=== PATIENT | male | born 1985 | race African-American/Black ===

== ENCOUNTER → 2017-01-07 | Outpatient (CLI) | payer OTHER ==
[~2017-01-07] VITALS: Ht 193 cm; Wt 108.9 kg
[~2017-01-07] MED LIST: ACETAMINOPHEN325 M1 PO; AFLURIA 2045 MCG/0.4; AMOXICILLIN 50500 MG PO; ASCORBIC ACID500 M1 PO; ATIVAN1 MG PO; BACLOFEN; BACLOFEN 10MG T10 M1 PO; BACLOFEN 10MG T10 MG PO; BACLOFEN IT; BACLOFEN20 MG; BACLOFEN20 MG PO; BACTRIM DS TAB1 EACH PO; BISACODYL SUPP10 MG RECTAL; C-500500 MG PO; CENTRUM SILVER1 EAC2 PO; CIPRO; CIPROFLOXACIN500 M1 PO; CLONAZEPAM 1 MG1 M1; CLONAZEPAM 1 MG1 M1 PO; DOXYCYCLINE 10100 M1 PO; GABAPENTIN; GABLOFEN50 MCG/1 M; HYDROCODON-ACE1 EAC4 PO; HYDROCODON-ACE1 EAC5 PO; HYDROCODONE-AP1 EAC6 PO; KLONOPIN1 MG PO; LACTULOSE10 GM/152; LEVAQUIN 500 M500 M2 PO; LEVAQUIN 500 M500 MG PO; LIORESAL 10 MG10 MG PO; LORTAB 5 MG/5001 TA1 PO; METHADONE HCL5 MG PO; MORPHINE 2 IT; MS CONTIN 30 MG30 MG PO; MS CONTIN15 MG PO; NOHOMEMEDICATIONS; NORCO 10-325 T1 EACH PO; NORCO 5-325 TA1 EACH PO; OXYBUTYNIN 5 MG5 M1 PO; PERCOCET 5-3251 EACH PO; PHENERGAN 25 MG25 M1 PO; PNEUMOVAX25 MCG/0.5; PROAIR HFA8.5 GM IH; PROZAC 10 MG CA10 M1 PO; PROZAC 10 MG CA10 MG PO; PROZAC PO; RIFAMPIN 300 M300 M1 PO; SANTYL OINTMENT30 G1 TOP; TIZANIDINE HCL4 M1 PO; TIZANIDINE HCL4 MG PO; TRAMADOL 50 MG50 MG PO; TUMS PO; ULTRAM 50MG TAB50 MG PO; UNICOMPLEX M TA1 TA1 PO; VESICARE10 M1 PO; VITAMINC500 PO; VOLTAREN GEL 1100 G1 TOP; VOLTAREN GEL 1100 GM TOP; ZANAFLEX4 M1 PO; ZANAFLEX4 MG PO; ZANAFLEX6 MG PO; ZINC SULFATE 2220 M1 PO; ZOFRAN ODT4 MG PO; [UNRECOGNIZED DRUG - OTHER] URETHRAL
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
[2017-01-07 10:35] VITALS: BP 121/71
== END ==
LOC: PAIN 07:34
DX: G04.1 Tropical spastic paraplegia (principal); G62.9 Polyneuropathy, unspecified; G89.29 Other chronic pain

== ENCOUNTER → 2017-02-19 | Outpatient (CLI) | payer OTHER ==
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
[2017-02-19 13:50] VITALS: BP 137/96
== END | disposition home or self-care (01) ==
LOC: PAIN 07:17
DX: G82.20 Paraplegia, unspecified (principal); G62.9 Polyneuropathy, unspecified

== ENCOUNTER 2017-03-07 16:10 | Emergency (ER) | payer OTHER ==
[~2017-03-07] VITALS: Ht 193 cm; Wt 113.4 kg
== END 2017-03-07 19:17 | disposition home or self-care (01) ==
LOC: ER 16:10
DX: Z46.6 Encounter for fitting and adjustment of urinary device (principal); G82.20 Paraplegia, unspecified; Z86.14 Personal history of Methicillin resistant Staphylococcus aureus infection; F41.9 Anxiety disorder, unspecified

== ENCOUNTER → 2017-06-01 | Outpatient (CLI) | payer OTHER ==
[~2017-06-01] VITALS: Ht 193 cm; Wt 108.9 kg
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
[2017-06-01 16:11] VITALS: BP 124/89
== END | disposition home or self-care (01) ==
LOC: PAIN 07:04
DX: G82.20 Paraplegia, unspecified (principal); Z79.899 Other long term (current) drug therapy

== ENCOUNTER 2017-10-15 15:29 | Emergency (ER) | payer OTHER ==
[~2017-10-15] VITALS: Ht 193 cm; Wt 99.8 kg
[2017-10-15 18:45] VITALS: BP 126/78
[2017-10-15] MEDS ORDERED: COUMADIN 5 MG TA5 M1 PO (19:37)
[2017-10-15] MEDS ORDERED: ENOXAPARIN100 MG/11 SUBQ (19:37)
[2017-10-26] MEDS ORDERED: ZANAFLEX4 MG PO (14:03)
[2017-10-26] MEDS ORDERED: HYDROCODON-ACE1 EAC5 PO ×2 (14:03)
[2017-10-26] MEDS ORDERED: BACLOFEN20 MG PO (14:03)
[2017-10-26] MEDS ORDERED: KLONOPIN1 MG PO (14:03)
[2017-10-26] MEDS ORDERED: COUMADIN 5 MG TA5 M1 PO (14:11)
[2018-04-29] MEDS ORDERED: OXYCODONE-ACET1 EAC2 PO ×2 (10:51→11:29)
[2018-04-29] MEDS ORDERED: ZANAFLEX4 MG PO (11:29)
[2018-04-29] MEDS ORDERED: LIORESAL 10 MG10 MG PO (11:29)
[2018-04-29] MEDS ORDERED: NEURONTIN 300300 M1 PO (11:29)
[2018-04-29] MEDS ORDERED: KLONOPIN1 MG PO (11:29)
[2018-08-06] MEDS ORDERED: VALIUM5 MG PO (10:13)
[2018-08-06] MEDS ORDERED: OXYCODONE-ACET1 EAC2 PO (10:40)
[2018-08-06] MEDS ORDERED: PERCOCET 10-321 EACH PO (10:44)
== END 2017-10-15 18:45 | disposition home or self-care (01) ==
LOC: ER 15:29
DX: I82.491 Acute embolism and thrombosis of other specified deep vein of right lower extremity (principal); L89.219 Pressure ulcer of right hip, unspecified stage; F41.9 Anxiety disorder, unspecified; Z86.14 Personal history of Methicillin resistant Staphylococcus aureus infection

== ENCOUNTER → 2017-10-26 | Outpatient (CLI) | payer OTHER ==
[~2017-10-26] VITALS: Ht 193 cm; Wt 97.5 kg
[~2017-10-26] MED LIST changes: +COUMADIN 5 MG TA5 M1 PO; +ENOXAPARIN100 MG/11 SUBQ; +NEURONTIN 300300 M1 PO; +OXYCODONE-ACET1 EAC2 PO; +PERCOCET 10-321 EACH PO; +VALIUM5 MG PO
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
[2017-10-26 13:24] VITALS: BP 115/68
== END ==
LOC: PAIN
DX: S21.402A Unspecified open wound of left back wall of thorax with penetration into thoracic cavity, initial encounter (principal); I82.401 Acute embolism and thrombosis of unspecified deep veins of right lower extremity; F11.90 Opioid use, unspecified, uncomplicated; R25.2 Cramp and spasm; X58.XXXA Exposure to other specified factors, initial encounter; Y93.89 Activity, other specified; Y92.89 Other specified places as the place of occurrence of the external cause; Y99.8 Other external cause status

== ENCOUNTER 2018-01-26 19:27 | Inpatient (IN) | payer OTHER ==
[~2018-01-26] VITALS: Ht 193 cm; Wt 92.2 kg
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
[~2018-01-26 19:27] MED LIST changes: -NEURONTIN 300300 M1 PO; -OXYCODONE-ACET1 EAC2 PO; -PERCOCET 10-321 EACH PO; -VALIUM5 MG PO
[2018-01-26 19:30] VITALS: BP 137/87
[2018-01-26 20:43] LABS: BASOPHILS 1.1 % (0.0-2.0); EOSINOPHILS 0.6 % (0.0-3.0); HEMOGLOBIN 10.1 gm/dL (14.0-18.0); LYMPHOCYTES 27.2 % (24.0-44.0); MCHC 31.6 g/dL (28.0-37.0); MCV 76.2 fL (80.0-100.0); MONOCYTES 6.2 % (1.0-8.0); PLATELET COUNT 528 thou/uL (150-400); POLYS 64.9 % (36.0-66.0); RDW 17.3 % (10.5-14.5); WBC 13.8 thou/uL (4.0-11.0)
[2018-01-26] MEDS ORDERED: LIORESAL 10 MG10 MG PO (20:48)
[2018-01-26 20:50] LABS: CALCIUM 9.7 mg/dL (8.5-10.1); POTASSIUM 3.6 mmol/L (3.5-5.1)
[2018-01-26 21:41] LABS: URINE BILIRUBIN NEGATIVE (Negative); URINE BLOOD TRACE (Negative); URINE CLARITY CLEAR; URINE COLOR YELLOW; URINE GLUCOSE-RANDOM* NEGATIVE (Negative); URINE KETONES 1+ (Negative); URINE PROTEIN (DIPSTICK) TRACE (Negative); URINE SPECIFIC GRAVITY >= 1.030 (1.005-1.035); URINE UROBILINOGEN 0.2 E.U./dl (0.2-1.0)
[2018-01-26 21:42] LABS: URINE LEUKOCYTES-REFLEX 1+ (Negative); URINE NITRITE-REFLEX POSITIVE (Negative)
[2018-01-26 21:48] LABS: SQUAMOUS >10 Many /LPF (0-3)
[2018-01-26 21:49] LABS: BACTERIA-REFLEX >30 Many /HPF (None Seen); COARSE GRANULAR CASTS 0-3 Few /LPF (None Seen); CRYSTALS None Seen /LPF (None Seen); FINE GRANULAR CASTS 0-3 Few /LPF (None Seen); MUCUS >6 Heavy strn/LPF (None Seen); URINE RBC 3-10 Few /HPF (0-2); URINE WBC-REFLEX >25 Many /HPF (0-5)
[2018-01-26 22:04] VITALS: BP 137/87
[2018-01-26 22:20] VITALS: BP 135/78
[2018-01-26 22:37] VITALS: BP 128/80
[2018-01-27 04:30] VITALS: BP 133/72
[2018-01-27 07:43] VITALS: BP 112/55
[2018-01-27 20:00] VITALS: BP 120/72
[2018-01-28 04:30] VITALS: BP 146/90
[2018-01-28 06:08] LABS: CALCIUM 9.4 mg/dL (8.5-10.1); CREATININE 0.9 mg/dL (0.7-1.3); POTASSIUM 4.1 mmol/L (3.5-5.1)
[2018-01-28 06:43] LABS: FOLIC ACID 10.2 ng/mL (8.6-58.9); TSH 1.205 uIU/mL (0.358-3.740)
[2018-01-28 07:43] LABS: BASOPHILS 0.8 % (0.0-2.0); EOSINOPHILS 1.6 % (0.0-3.0); HEMATOCRIT 30.5 % (42.0-52.0); HEMOGLOBIN 9.7 gm/dL (14.0-18.0); LYMPHOCYTES 22.3 % (24.0-44.0); MCH 24.5 pg (26.0-34.0); MCV 76.5 fL (80.0-100.0); PLATELET COUNT 458 thou/uL (150-400); POLYS 66.3 % (36.0-66.0); RBC 3.98 mil/uL (4.50-6.00); RDW 17.7 % (10.5-14.5); WBC 10.5 thou/uL (4.0-11.0)
[2018-01-28 08:36] VITALS: BP 111/65
[2018-01-28] MEDS ORDERED: KLONOPIN1 MG PO (16:58)
[2018-01-28] MEDS ORDERED: HYDROCODON-ACE1 EAC5 PO ×2 (16:58)
[2018-01-28 17:37] VITALS: BP 119/74
[2018-01-28 19:56] VITALS: BP 123/77
[2018-01-29 03:49] VITALS: BP 117/72
[2018-01-29 05:54] LABS: ABSOLUTE NEUTROPHILS 6.1 thou/uL (1.4-8.2); BASOPHILS 0.7 % (0.0-2.0); HEMATOCRIT 27.6 % (42.0-52.0); HEMOGLOBIN 8.9 gm/dL (14.0-18.0); LYMPHOCYTES 29.5 % (24.0-44.0); MCH 24.7 pg (26.0-34.0); MCHC 32.2 g/dL (28.0-37.0); MCV 76.7 fL (80.0-100.0); MONOCYTES 8.2 % (1.0-8.0); PLATELET COUNT 434 thou/uL (150-400); POLYS 59.6 % (36.0-66.0); RBC 3.59 mil/uL (4.50-6.00); RDW 17.5 % (10.5-14.5); WBC 10.3 thou/uL (4.0-11.0)
[2018-01-29 06:07] LABS: CALCIUM 9.3 mg/dL (8.5-10.1); CREATININE 1.1 mg/dL (0.7-1.3)
[2018-01-29 07:05] VITALS: BP 120/60
[2018-01-29 19:23] VITALS: BP 118/80
[2018-01-30 03:29] VITALS: BP 107/72
[2018-01-30 08:03] VITALS: BP 115/64
[2018-01-30 08:56] LABS: ABSOLUTE NEUTROPHILS 5.1 thou/uL (1.4-8.2); BASOPHILS 0.8 % (0.0-2.0); EOSINOPHILS 2.5 % (0.0-3.0); HEMATOCRIT 30.4 % (42.0-52.0); HEMOGLOBIN 9.6 gm/dL (14.0-18.0); MCH 24.3 pg (26.0-34.0); MCHC 31.6 g/dL (28.0-37.0); MCV 76.8 fL (80.0-100.0); MONOCYTES 7.4 % (1.0-8.0); PLATELET COUNT 440 thou/uL (150-400); POLYS 53.3 % (36.0-66.0); RBC 3.96 mil/uL (4.50-6.00); RDW 17.4 % (10.5-14.5); WBC 9.5 thou/uL (4.0-11.0)
[2018-01-30 09:08] LABS: CALCIUM 9.7 mg/dL (8.5-10.1); CREATININE 0.9 mg/dL (0.7-1.3); POTASSIUM 3.8 mmol/L (3.5-5.1)
[2018-01-30 20:00] VITALS: BP 120/62
[2018-01-31 03:44] VITALS: BP 102/57
[2018-01-31 07:30] VITALS: BP 99/67
[2018-01-31 15:00] VITALS: BP 102/54
[2018-01-31 15:31] LABS: ABSOLUTE NEUTROPHILS 6.6 thou/uL (1.4-8.2); EOSINOPHILS 1.5 % (0.0-3.0); HEMATOCRIT 33.7 % (42.0-52.0); LYMPHOCYTES 25.8 % (24.0-44.0); MCH 24.7 pg (26.0-34.0); MCHC 32.7 g/dL (28.0-37.0); MCV 75.5 fL (80.0-100.0); MONOCYTES 5.9 % (1.0-8.0); PLATELET COUNT 467 thou/uL (150-400); POLYS 65.8 % (36.0-66.0); RBC 4.46 mil/uL (4.50-6.00); RDW 17.7 % (10.5-14.5); WBC 10.1 thou/uL (4.0-11.0)
[2018-01-31 15:44] LABS: ALBUMIN 2.9 g/dL (3.4-5.0); CALCIUM 9.7 mg/dL (8.5-10.1); CREATININE 0.9 mg/dL (0.7-1.3); POTASSIUM 4.1 mmol/L (3.5-5.1); TOTAL BILIRUBIN 0.2 mg/dL (<0.1-1.0)
[2018-01-31 16:29] LABS: % SATURATION 20 % (20-39); IRON 46 ug/dL (65-175); TIBC 232 ug/dL (250-450)
[2018-01-31 19:44] VITALS: BP 121/77
[2018-02-01 05:45] VITALS: BP 94/53
[2018-02-01 06:01] LABS: ABSOLUTE NEUTROPHILS 8.4 thou/uL (1.4-8.2); BASOPHILS 1.2 % (0.0-2.0); EOSINOPHILS 1.5 % (0.0-3.0); HEMATOCRIT 34.2 % (42.0-52.0); LYMPHOCYTES 25.9 % (24.0-44.0); MCH 24.3 pg (26.0-34.0); MCHC 32.2 g/dL (28.0-37.0); MCV 75.5 fL (80.0-100.0); MONOCYTES 5.6 % (1.0-8.0); PLATELET COUNT 513 thou/uL (150-400); POLYS 65.8 % (36.0-66.0); RBC 4.53 mil/uL (4.50-6.00); RDW 17.2 % (10.5-14.5); WBC 12.8 thou/uL (4.0-11.0)
[2018-02-01 06:12] LABS: CREATININE 0.9 mg/dL (0.7-1.3); POTASSIUM 4.7 mmol/L (3.5-5.1)
[2018-02-01 07:20] VITALS: BP 106/67
[2018-02-01] MEDS ORDERED: LIORESAL 10 MG10 MG PO (09:48)
[2018-02-01] MEDS ORDERED: KLONOPIN1 MG PO (09:48)
[2018-02-01] MEDS ORDERED: HYDROCODON-ACE1 EAC5 PO ×2 (09:48)
[2018-02-01] MEDS ORDERED: ZANAFLEX4 MG PO (09:48)
[2018-02-01 15:15] VITALS: BP 123/70
[2018-02-01 20:15] VITALS: BP 102/62
[2018-02-02 05:46] VITALS: BP 99/58
[2018-02-02 07:42] VITALS: BP 116/69
[2018-02-02 14:01] VITALS: BP 95/57
== END 2018-02-02 15:27 | DRG 592 ==
LOC: ER 19:27 → 4E 21:51 → EROBS 21:51 → 4E 22:23
PROVIDERS: Hospitalist; Internal Medicine Infectious Disease; Physician Assistant
DX: L89.313 Pressure ulcer of right buttock, stage 3 (principal); E43 Unspecified severe protein-calorie malnutrition; G82.22 Paraplegia, incomplete; N39.0 Urinary tract infection, site not specified; L89.323 Pressure ulcer of left buttock, stage 3; L89.213 Pressure ulcer of right hip, stage 3; L89.224 Pressure ulcer of left hip, stage 4; E88.09 Other disorders of plasma-protein metabolism, not elsewhere classified; D50.9 Iron deficiency anemia, unspecified; F41.9 Anxiety disorder, unspecified; B96.20 Unspecified Escherichia coli [E. coli] as the cause of diseases classified elsewhere; Z86.718 Personal history of other venous thrombosis and embolism; Z86.14 Personal history of Methicillin resistant Staphylococcus aureus infection; Z68.24 Body mass index [BMI] 24.0-24.9, adult
CPT/HCPCS: 10084

== ENCOUNTER → 2018-04-29 | Outpatient (CLI) | payer OTHER ==
[~2018-04-29] VITALS: Ht 193 cm; Wt 93.9 kg
[~2018-04-29] MED LIST changes: +NEURONTIN 300300 M1 PO; +OXYCODONE-ACET1 EAC2 PO
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
--- NOTE | ~2018-04-29 | HPC ---
[facility] [address] [place] [address] PAIN MANAGEMENT CONSULTATION Name: JUANCARLOS KEY Room #: REG [facility].#: [id number] Admission: 04/29/18 Attend Phys: Yony Goldman MD Discharge: Date of : 86 Report #: [id number] THIS REPORT FOR: //name// CC: [facility] physician/PCP Yony Goldman DATE OF SERVICE: 04/29/2018 Followup visit for chronic pain. The patient was last seen on 10/26/2017. He has had rough 6 months. He says he has had multiple open wounds. He was treated in the hospital for a period of time and now is back home with home health coming to make dressing changes for him. It sounds like these were stage [address] pressure sores extending all the way down to the bone. His pain shot up considerably and he was placed on rather high doses of oxycodone. At the peak of his usage he was taking up to 20 mg of oxycodone every 4 hours. This equates to 120 mg of oxycodone or 180 morphine milligram equivalents. Unfortunately, he ran out of medications about 3 weeks ago at that dose. He has been unable to get comfortable with his previous doses of medication since that time. He brought in his bottle of hydrocodone today and wanted me to prescribing these high doses of opioids. I told him that I would not do so, I felt that this was inappropriate, he would develop hyperalgesia and that he would rapidly develop tolerance, and I believe he already has. PHYSICAL EXAMINATION: He is 6 feet 4 inches, 33-year-old, BMI is 25.2. His blood pressure is 105/66, heart rate 73, respirations 14. Pain intensity is 8. He is not on any blood thinners. He has signed an opioid risk tool and is a low risk for addiction, although he does have significant chronic pain and has longstanding use of pain medication to help with that. He is on an opioid agreement. He is on polypharmacy including clonazepam, tizanidine, baclofen, hydrocodone and gabapentin. On physical exam, I was unable to get a good look at his wounds due to dressings, but he has dressing changes occurring in the next hour. I have asked them to take pictures so that I can keep track of them when I see him. IMPRESSION: 1. Chronic intractable pain and spasticity due to spinal cord injury at T6. 2. Management of high risk medications and polypharmacy. PLAN: I renewed the following for him today: 1. Clonazepam 1 tablet q.6 hours for spasticity. 2. Zanaflex 4 mg 3 times daily. 3. Baclofen 10 mg 1-2 tablets 4 times daily. [address] [address] PAIN MANAGEMENT CONSULTATION Name: JUANCARLOS KEY Room #: REG [facility]#: [id number] Admission: 04/29/18 Attend Phys: Yony Goldman MD Discharge: Date of : 86 Report #: [id number] 4. Gabapentin 600 mg t.i.d. 5. I have substituted oxycodone 10/325 one tablet 4 times daily for hydrocodone. This will give him a 50% increase in pain medication MME over the course of the healing of his wounds. I would like to then back him down if we can. Safeguarding the medications is important. The new addition of gabapentin should help with nerve pain. Followup visit planned in 3 months. By: [id number] Yony Goldman MD /nt
[2018-04-29 10:53] VITALS: BP 105/66
== END ==
LOC: PAIN 01-27 07:08
DX: M54.6 Pain in thoracic spine (principal); G89.4 Chronic pain syndrome; Z79.899 Other long term (current) drug therapy

== ENCOUNTER → 2018-08-06 | Outpatient (CLI) | payer OTHER ==
[~2018-08-06] VITALS: Ht 193 cm; Wt 99.8 kg
[~2018-08-06] MED LIST changes: +PERCOCET 10-321 EACH PO; +VALIUM5 MG PO
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
[2018-08-06 10:13] VITALS: BP 96/65
== END ==
LOC: PAIN 07:19
DX: G89.4 Chronic pain syndrome (principal); M54.5 Low back pain; R25.2 Cramp and spasm; Z79.899 Other long term (current) drug therapy

== ENCOUNTER → 2018-10-15 | Outpatient (CLI) | payer OTHER ==
[~2018-10-15] VITALS: Ht 193 cm; Wt 99.8 kg
[2018-10-15 08:33] VITALS: BP 112/77
--- NOTE | 2018-10-15 08:42 | NUR ---
Pain Clinic Assessment: 1. History of Osteoarthritis: Not Applicable History of Rheumatoid Arthritis: Not Applicable 2. Height: 6 ft. 4 in. 193.0 cm. Weight: 220.0 lb. oz. 99.792 kg. Patient's BMI: 26.8 3. Vital Signs: BP: 112/77 Pulse: 77 Resp: 16 Temp: 02 Sat: 96 ECG Mon: 4. Pain Intensity: 10 5. Fall Risk: Dizziness: N Needs help standing or walking: Y Fallen in the last 3 months: N Fall risk comments: 6. Patient on Blood Thinner: None 7. History of Hypertension: N 8. Opioid Therapy greater than 6 weeks: Y Opiate Contract Signed: 05/28/16 9. Risk Assessment Tool Provided: Opioid Risk Tool 10. Functional Assessment Tool: 11. Recreational Drug Use: Unknown Drug Type: Tobacco Use: Never Smoker Tobacco Type: Amount or Packs/day: How Many Years: Alcohol Use: Yes Frequency: Weekly Quant: 2
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
== END ==
LOC: PAIN 07:16
DX: M54.5 Low back pain (principal); M79.605 Pain in left leg; M79.604 Pain in right leg; M25.572 Pain in left ankle and joints of left foot; M25.571 Pain in right ankle and joints of right foot; G89.4 Chronic pain syndrome; Z79.891 Long term (current) use of opiate analgesic; Z87.828 Personal history of other (healed) physical injury and trauma; Z72.89 Other problems related to lifestyle

== ENCOUNTER → 2018-12-09 | Outpatient (CLI) | payer OTHER ==
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
[2018-12-09 09:05] VITALS: BP 124/73
--- NOTE | 2018-12-09 09:25 | NUR ---
Pain Clinic Assessment: 1. History of Osteoarthritis: Not Applicable History of Rheumatoid Arthritis: Not Applicable 2. Height: ft. in. cm. Weight: lb. oz. kg. Patient's BMI: 3. Vital Signs: BP: 124/73 Pulse: 70 Resp: 14 Temp: 02 Sat: 99 ECG Mon: 4. Pain Intensity: 4 5. Fall Risk: Dizziness: N Needs help standing or walking: N Fallen in the last 3 months: N Fall risk comments: 6. Patient on Blood Thinner: None 7. History of Hypertension: N 8. Opioid Therapy greater than 6 weeks: Y Opiate Contract Signed: 05/28/16 9. Risk Assessment Tool Provided: Opioid Risk Tool 10. Functional Assessment Tool: 11. Recreational Drug Use: Never Drug Type: Tobacco Use: Never Smoker Tobacco Type: Amount or Packs/day: How Many Years: Alcohol Use: Yes Frequency: Quant:
== END ==
LOC: PAIN 06:59
DX: G89.4 Chronic pain syndrome (principal); M54.5 Low back pain; Z79.899 Other long term (current) drug therapy; Z87.828 Personal history of other (healed) physical injury and trauma

== ENCOUNTER → 2019-02-07 | Outpatient (CLI) | payer OTHER ==
[2019-02-07 13:58] VITALS: BP 105/62
--- NOTE | 2019-02-07 14:13 | NUR ---
Pain Clinic Assessment: 1. History of Osteoarthritis: Not Applicable History of Rheumatoid Arthritis: Not Applicable 2. Height: ft. in. cm. Weight: lb. oz. kg. Patient's BMI: 3. Vital Signs: BP: 105/62 Pulse: 106 Resp: 16 Temp: 02 Sat: 96 ECG Mon: 4. Pain Intensity: 9 5. Fall Risk: Dizziness: N Needs help standing or walking: Y Fallen in the last 3 months: N Fall risk comments: 6. Patient on Blood Thinner: None 7. History of Hypertension: N 8. Opioid Therapy greater than 6 weeks: Y Opiate Contract Signed: 05/28/16 9. Risk Assessment Tool Provided: Opioid Risk Tool 10. Functional Assessment Tool: 11. Recreational Drug Use: Never Drug Type: Tobacco Use: Never Smoker Tobacco Type: Amount or Packs/day: How Many Years: Alcohol Use: Yes Frequency: Quant:
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
== END ==
LOC: PAIN 06:57
DX: G89.29 Other chronic pain (principal); M54.5 Low back pain; R68.84 Jaw pain; Z79.899 Other long term (current) drug therapy; Z79.891 Long term (current) use of opiate analgesic

== ENCOUNTER 2019-06-11 02:24 | Emergency (ER) | payer OTHER ==
[~2019-06-11] VITALS: Ht 193 cm; Wt 113.4 kg
[2019-06-11] MEDS ORDERED: TRAMADOL 50 MG50 MG PO (04:15)
[2019-06-11] MEDS ORDERED: KEFLEX500 M1 PO (04:15)
[2019-06-11 05:29] VITALS: BP 110/55
== END 2019-06-11 05:33 | disposition home or self-care (01) ==
LOC: ER 02:24
DX: S01.81XA Laceration without foreign body of other part of head, initial encounter (principal); G82.20 Paraplegia, unspecified; F41.9 Anxiety disorder, unspecified; Y08.89XA Assault by other specified means, initial encounter; Y93.89 Activity, other specified; Y92.092 Bedroom in other non-institutional residence as the place of occurrence of the external cause; Y99.8 Other external cause status

== ENCOUNTER → 2019-06-23 | Outpatient (CLI) | payer OTHER ==
[~2019-06-23] MED LIST changes: +ANTIVERT25 MG PO; +KEFLEX500 M1 PO
[2019-06-23 09:37] VITALS: BP 101/61
--- NOTE | 2019-06-23 10:01 | NUR ---
Pain Clinic Assessment: 1. History of Osteoarthritis: Not Applicable History of Rheumatoid Arthritis: Not Applicable 2. Height: ft. in. cm. Weight: lb. oz. kg. Patient's BMI: 3. Vital Signs: BP: 101/61 Pulse: 99 Resp: 16 Temp: 02 Sat: 100 ECG Mon: 4. Pain Intensity: 8 5. Fall Risk: Dizziness: N Needs help standing or walking: Y Fallen in the last 3 months: N Fall risk comments: 6. Patient on Blood Thinner: None 7. History of Hypertension: N 8. Opioid Therapy greater than 6 weeks: Y Opiate Contract Signed: 05/28/16 9. Risk Assessment Tool Provided: DMITRIY 10. Functional Assessment Tool: 11. Recreational Drug Use: Never Drug Type: Tobacco Use: Never Smoker Tobacco Type: Amount or Packs/day: How Many Years: Alcohol Use: No Frequency: Quant:
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
== END ==
LOC: PAIN 06-16 06:55
DX: M54.5 Low back pain (principal); R68.84 Jaw pain; G89.4 Chronic pain syndrome; R25.2 Cramp and spasm; Z79.899 Other long term (current) drug therapy

== ENCOUNTER 2019-06-28 21:51 | Emergency (ER) | payer OTHER ==
[~2019-06-28] VITALS: Ht 193 cm; Wt 108.9 kg
[~2019-06-28 21:51] MED LIST changes: -ANTIVERT25 MG PO
[2019-06-28] MEDS ORDERED: ZOFRAN ODT4 MG PO (23:16)
[2019-06-28] MEDS ORDERED: ANTIVERT25 MG PO (23:16)
[2019-06-28 23:44] VITALS: BP 113/74
== END 2019-06-28 23:44 | disposition home or self-care (01) ==
LOC: ER 21:51
DX: H81.10 Benign paroxysmal vertigo, unspecified ear (principal); G82.20 Paraplegia, unspecified; F41.9 Anxiety disorder, unspecified; Z87.442 Personal history of urinary calculi

== ENCOUNTER 2019-07-07 21:20 | Inpatient (IN) | payer OTHER ==
[~2019-07-07] VITALS: Ht 195.6 cm; Wt 121.1 kg
[~2019-07-07 21:20] MED LIST changes: +ANTIVERT25 MG PO
[2019-07-07 21:38] VITALS: BP 139/59
[2019-07-08] VITALS (8 sets, daily range): BP systolic 95–140; BP diastolic 53–77
[2019-07-08 00:18] LABS: URINE BILIRUBIN NEGATIVE (Negative); URINE BLOOD TRACE (Negative); URINE CLARITY CLOUDY; URINE COLOR YELLOW; URINE GLUCOSE-RANDOM* NEGATIVE (Negative); URINE KETONES NEGATIVE (Negative); URINE NITRITE-REFLEX NEGATIVE (Negative); URINE PROTEIN (DIPSTICK) 1+ (Negative); URINE SPECIFIC GRAVITY <= 1.005 (1.005-1.035); URINE UROBILINOGEN 0.2 E.U./dl (0.2-1.0)
[2019-07-08 00:23] LABS: URINE LEUKOCYTES-REFLEX 3+ (Negative)
[2019-07-08 00:27] LABS: MUCUS 0-3 Light strn/LPF (None Seen); SQUAMOUS 4-10 Moderate /LPF (0-3)
[2019-07-08 00:28] LABS: BACTERIA-REFLEX >30 Many /HPF (None Seen); CASTS None Seen /LPF (None Seen); CRYSTALS None Seen /LPF (None Seen); URINE WBC-REFLEX >25 Many /HPF (0-5)
--- NOTE | 2019-07-08 01:47 | NUR ---
PT CAME IN WITH MULTIPLE STAGE 4 OR WORSE PRESSURE SORES ON HIS RIGHT AND LEFT BUTTOCKS. PT HAS BEEN GOING TO THE WOUND CLINIC AT [facility].
[2019-07-08 02:42] LABS: ANION GAP 10 mmol/L (7-16); BUN 18 mg/dL (7-18); CALCIUM 9.1 mg/dL (8.5-10.1); CHLORIDE 97 mmol/L (98-107); CO2 24 mmol/L (21-32); CREATININE 1.1 mg/dL (0.7-1.3); GLUCOSE 100 mg/dL (74-106); POTASSIUM 3.9 mmol/L (3.5-5.1); SODIUM 131 mmol/L (136-145)
[2019-07-08 02:47] LABS: ALBUMIN 2.3 g/dL (3.4-5.0); DIRECT BILIRUBIN < 0.1 mg/dL (<0.1-0.3); SGOT 21 U/L (15-37); SGPT 20 U/L (30-65); TOTAL BILIRUBIN 0.1 mg/dL (<0.1-1.0); TOTAL PROTEIN 8.3 g/dL (6.4-8.2)
[2019-07-08 03:37] LABS: ABSOLUTE NEUTROPHILS 8.3 thou/uL (1.4-8.2); EOSINOPHILS 0.4 % (0.0-3.0); HEMATOCRIT 27.7 % (42.0-52.0); HEMOGLOBIN 8.6 gm/dL (14.0-18.0); LYMPHOCYTES 19.2 % (24.0-44.0); MCH 23.3 pg (26.0-34.0); MCHC 30.9 g/dL (28.0-37.0); MCV 75.6 fL (80.0-100.0); MONOCYTES 6.9 % (1.0-8.0); PLATELET COUNT 546 thou/uL (150-400); POLYS 72.5 % (36.0-66.0); RBC 3.67 mil/uL (4.50-6.00); RDW 15.5 % (10.5-14.5); WBC 11.5 thou/uL (4.0-11.0)
--- NOTE | 2019-07-08 04:57 | NUR ---
CALLED REPORT TO XU LORENZ IN CCU
[2019-07-08 06:58] LABS: CALCIUM 9.2 mg/dL (8.5-10.1); POTASSIUM 4.6 mmol/L (3.5-5.1)
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
[2019-07-08 07:53] LABS: HEMATOCRIT 26.9 % (42.0-52.0); HEMOGLOBIN 8.5 gm/dL (14.0-18.0); MCH 23.6 pg (26.0-34.0); MCHC 31.7 g/dL (28.0-37.0); MCV 74.5 fL (80.0-100.0); RBC 3.61 mil/uL (4.50-6.00); RDW 15.2 % (10.5-14.5); WBC 12.3 thou/uL (4.0-11.0)
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
--- NOTE | 2019-07-08 19:06 | NUR ---
VASCULAR ACCESS CONSULTED FOR PICC, REVIEWED MEDS,HISTORY,LABS,ORDER AND CONSENT. DISCUSSED BENEFITS AND RISK OF PICC WITH PT,VERBALIZED UNDERSTANDING. BETH NORTON WAS WIDELY PATENT WITH USG. 4FR SL POWER PICC TRIMMED TO 50CM INSERTED PER HOSPITAL P&P TO 0CM. STAT CXR ORDERED.
--- NOTE | 2019-07-08 19:21 | NUR ---
CXR CONFIRMED PICC IN DISTAL SVC. PICC RELEASED FOR IMMEDIATE USE PER PROTOCOL
[2019-07-09 00:08] VITALS: BP 99/61
[2019-07-09 03:27] VITALS: BP 119/55
--- NOTE | 2019-07-09 05:11 | NUR ---
ASSESSMENT DOCUMENTED.PT BEEN RESTING IN NO ACUTE DISTRESS.A/OX4.VSS.SR ON MONITOR.S/P DEBRIDEMENT TO WOUNDS CARLITOS HIPS AND BUTTOCKS.WOUND VAC TO SUCTION 125,SEROSANGUIOUS DRAINAGE NOTED.ASSSITED WITH COMPLETE BED BATH,TOLERATED.PT ABLE TO ASSIST WITH REPOSITIONING,JESSI MORRIS.PAIN MEDS GIVEN WITH RELIEF.IV ANTIBIOTICS GIVEN PER ORDERS W/O ADVERSE EFFECTS.GRAM+ COCCI RESULTS CALLED IN TO FISH CULTURIST,NO N/OS SINCE PT IS ALREADY ON IV ANTIBIOTICS.PT DENIES PAIN OR ANY DISTRESS AT THIS TIME.WILL CONT TO MONITOR PER POC.
[2019-07-09 08:17] VITALS: BP 114/60
[2019-07-09 10:17] LABS: HEMOGLOBIN 7.5 gm/dL (14.0-18.0); MCHC 31.2 g/dL (28.0-37.0); RDW 15.5 % (10.5-14.5)
[2019-07-09 10:20] LABS: CALCIUM 8.9 mg/dL (8.5-10.1); CREATININE 0.9 mg/dL (0.7-1.3); HEMATOCRIT 23.9 % (42.0-52.0); MCH 23.7 pg (26.0-34.0); MCV 75.8 fL (80.0-100.0); PLATELET COUNT 473 thou/uL (150-400); POTASSIUM 4.1 mmol/L (3.5-5.1); RBC 3.16 mil/uL (4.50-6.00)
[2019-07-09 10:41] LABS: ABSOLUTE NEUTROPHILS 8.7 thou/uL (1.4-8.2)
[2019-07-09 12:13] VITALS: BP 135/70
[2019-07-09 16:00] VITALS: BP 118/65
--- NOTE | 2019-07-09 16:13 | NUR ---
ASSUMED CARE OF PATIENT AT 0700. ASSESSMENTS CHARTED. PATIENT COMPLAINS OF BILATERAL HIP PAIN WHICH IS MINIMIZED TO A 3/10 WITH ALTERNATING MORPHINE AND OXYCODONE. PATIENT ON IV ABX. PATIENT REFUSED Q [address] PL[address] PATIENT TO CONTINUE WITH POC.
[2019-07-09 20:03] VITALS: BP 109/62
[2019-07-10 04:46] VITALS: BP 110/62
--- NOTE | 2019-07-10 05:09 | NUR ---
PT LYING IN BED. MORPHINE AND PERCOCET PROVIDING PAIN RELIEF. PT HAD A LARGE VERY LOOSE BM OVER A PERIOD OF ABOUT 30 MINUTES. STOOL SEEPED UNDER WOUND VAC DRSGSCAUSING THE SUCTION TO FAIL. REMOVED WOUND VAC AND APPLIED WET-TO-DRY. 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 CALL LIGHT WITHIN REACH. WILL CONTINUE TO PROVIDE FREQUENT OBSERVATION.
[2019-07-10 05:29] LABS: HEMATOCRIT 24.1 % (42.0-52.0); HEMOGLOBIN 7.5 gm/dL (14.0-18.0); MCH 23.7 pg (26.0-34.0); MCHC 31.1 g/dL (28.0-37.0); MCV 76.3 fL (80.0-100.0); RBC 3.16 mil/uL (4.50-6.00); RDW 15.7 % (10.5-14.5); WBC 11.5 thou/uL (4.0-11.0)
[2019-07-10 05:48] LABS: CALCIUM 8.8 mg/dL (8.5-10.1); CREATININE 1.1 mg/dL (0.7-1.3); POTASSIUM 4.3 mmol/L (3.5-5.1)
[2019-07-10 08:00] VITALS: BP 131/73
[2019-07-10 12:00] VITALS: BP 141/63
[2019-07-10 16:00] VITALS: BP 109/57
--- NOTE | 2019-07-10 17:52 | NUR ---
ASSUMED PT CARE AT APPROXIMATELY 0700. A&O X4. ASSESSMENT CHARTED. FALL PRECAUTIONS IN PLACE. VITAL SIGNS STABLE. PT DENIES HAVING CHEST PAIN. PT DENIES HAVING SOB. PT STATED HIS LOWER BACK AND BUTT WERE IN PAIN. PT RECEIVED ANALGESICS. PT STATED ANALGESICS RELEIVED PAIN. PT AND PT'S FAMILY EDUCATED ABOUT POC. PT AND FAMILY STATED UNDERSTANDING. PT RECEIVED WOUND CARE. PT ABLE TO MOVE HIMSELF AROUND IN BED AND HE CAN LIFT HIMSELF UP. PT COMFORTABLE IN BED. PT DENIED HAVING FURTHER CONCERNS AT THIS TIME.
[2019-07-10 19:50] VITALS: BP 129/85
[2019-07-11 04:46] LABS: CALCIUM 8.6 mg/dL (8.5-10.1); CREATININE 0.9 mg/dL (0.7-1.3); POTASSIUM 4.1 mmol/L (3.5-5.1)
[2019-07-11 04:49] LABS: HEMATOCRIT 34.6 % (42.0-52.0); MCH 23.8 pg (26.0-34.0); MCHC 31.3 g/dL (28.0-37.0); MCV 76.1 fL (80.0-100.0); RBC 4.55 mil/uL (4.50-6.00); RDW 15.6 % (10.5-14.5); WBC 6.3 thou/uL (4.0-11.0)
[2019-07-11 04:50] LABS: HEMOGLOBIN 10.8 gm/dL (14.0-18.0)
[2019-07-11 05:00] VITALS: BP 110/78
--- NOTE | 2019-07-11 05:29 | NUR ---
ASSUMED PT CARE AT 1900. PT A/OX4, VITAL SIGNS STABLE, ASSESSMENT CHARTED. PAIN ADEQAUTELY MANAGED WITH PAIN MEDICATION. NO ACUTE CHANGES THROUGH OUT SHIFT. WOUND DRESSINGS AND VAC IN PLACE. PT RESTED WELL THROUGH OUT SHIFT. PROGRESSING TOWARD PLAN OF CARE. WILL CONTINUE TO MONITOR.
[2019-07-11 07:50] VITALS: BP 126/83
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
[2019-07-11 12:05] VITALS: BP 114/77
[2019-07-11 16:05] VITALS: BP 125/71
--- NOTE | 2019-07-11 16:56 | NUR ---
ASSUMED PT CARE AT APPROXIMATELY 0700. ASSESSMENT CHARTED. FALL PRECAUTIONS IN PLACE. PT A&O X4. PT DENIES CHEST PAIN. PT DENIES SOB. PT STATES HE HAS PAIN IN HIS BACK AND LOWER BUTT. PT RECEIVING ANALGESICS. PT STATES PAIN LEVEL HAS DECREASED SINCE YESTERDAY. PT STATES ANALGESICS DECREASES PAIN LEVEL. PT RECEIVED WOUND CARE BY WOUND CARE NURSE. INFORMED DR. GARZON THAT PT HAS BEEN HAVING FREQUENT BM'S THAT DISRUPT WOUND DRESSINGS. DR. GARZON RX ANTI-DIARRHETIC. PT HAS NOT HAD FREQUENT BM'S TODAY. PT DOES NOT HAVE FURTHER CONCERNS AT THIS TIME. PT COMFORTABLE IN BED.
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
[2019-07-11 20:29] VITALS: BP 143/92
--- NOTE | 2019-07-12 03:13 | NUR ---
ASSUMED PT CARE AT 1900. PT A/OX4, VITALSIGNS STABLE, ASSESSMENT CHARTED. PT DID NOT COMPLAIN OF ANY PAIN. WOUND VACS IN PLACE, SECURED DUE TO SWEATS. FALL PRECAUTIONS IN PLACE. PT RESTED WELL THROUGH THE NIGHT. NO ACUTE CHANGES AT THIS TIME. WILL CONTINUE TO MONITOR.
[2019-07-12 05:12] VITALS: BP 120/70
[2019-07-12 08:00] VITALS: BP 105/58
--- NOTE | 2019-07-12 08:52 | NUR ---
Discussed LTAC with patient he has been at [facility] in past, last year and not interested. he reports have been working on healing of wounds in home setting and not progressing. Patient interested in [facility] eval. Faxed clinial.
[2019-07-12 12:00] VITALS: BP 117/77
[2019-07-12 16:50] VITALS: BP 114/63
--- NOTE | 2019-07-12 17:11 | NUR ---
ASSUMED PT CARE AT APPROXIMATELY 0700. PT A&O X4. ASSESSMENT CHARTED. FALL PRECAUTIONS IN PLACE. VITAL SIGNS STABLE. PT DENIES CHEST PAIN. PT DENIES HAVING SOB. PT HAS HAD PAIN IN HIS LOWER BACK/BUTT AREA WHERE HIS WOUNDS ARE. PT RECEIVED ANALGESICS TO RELEIVE PAIN. PT STATES ANALGESICS HELP RELEIVE PAIN. PT ALSO RECEIVED ANTI-DIARRETIC TO HELP MAINTAIN WOUND DRESSINGS INTACT. WOUND DRESSINGS INTACT. PT'S LOOSE STOOLS HAVE DECREASED. PT RECEIVED CT SCAN TODAY. CT SCAN SHOWED BOWEN CATH NOT IN CORRECT PLACE. PT HAS BEEN REFUSING TO ALLOW NURSING TO CONNECT BOWEN TO STAT LOCK FOR THE PAST 3 DAYS. BOWEN CATH STILL DRAINING AND COLLECTING URINE PROPERLY. PT EDUCATED THAT CATH NEEDED TO BE ADVANCED. PT REFUSED ADVANCEMENT OF BOWEN CATH UNTIL AFTER DINNER. PT PREFERS BEING INDEPENDENT WITH SELF CARE. PT CAN MOVE AND PUSH HIMSELF UP/AROUND IN BED. PT PREFERS MOVING HIMSELF IN BED. PT AND FAMILY EDUCATED ABOUT POC. PT AND FAMILY STATED UNDERSTANDING AND DENIED HAVING FURTHER QUESTIONS. PT COMFORTABLE IN BED. PT DENIES HAVING FRUTHER CONCENERS AT THIS TIME.
[2019-07-12 20:27] VITALS: BP 110/64
[2019-07-13 03:48] VITALS: BP 94/54
--- NOTE | 2019-07-13 04:33 | NUR ---
ASSUMED PT CARE AT 1900. PT A/OX4, VITAL SIGNS STABLE, ASSESSMENT CHARTED. PAIN ADEQAUTELY MANAGED WITH PAIN MEDICATION. WOUND VAC SECURED IN PLACE. FALL PRECAUTIONS MAINTAINED. RESTED WELL THROUGH THE NIGHT, NO ACUTE CHANGES. PROGRESSING TOWARD PLAN OF CARE, POSSIBLE DISCHARGE TODAY.
[2019-07-13 05:34] LABS: HEMATOCRIT 25.3 % (42.0-52.0); MCH 23.3 pg (26.0-34.0); MCHC 30.8 g/dL (28.0-37.0); MCV 75.7 fL (80.0-100.0); RBC 3.34 mil/uL (4.50-6.00); WBC 11.5 thou/uL (4.0-11.0)
[2019-07-13 05:39] LABS: HEMOGLOBIN 7.8 gm/dL (14.0-18.0)
[2019-07-13 05:56] LABS: CALCIUM 8.7 mg/dL (8.5-10.1); CREATININE 0.9 mg/dL (0.7-1.3)
--- NOTE | 2019-07-13 10:07 | PATH ---
[facility] [address] [place] [address] PATHOLOGY RPT PROCEDURE Name: STEPHEN COATES Room #: 210-P ADM IN M.R.#: [id number] Admission: 07/08/19 Date of : 87 Discharge: Report #: [id number] Path Case #: [id number] LCA Accession Number: [id number] . 01 Material submitted: . PART A: hip - LEFT TROCHANTERIC PRESSURE WOUND. Modifiers: left PART B: hip - RIGHT TROCHANTERIC PRESSURE WOUND. Modifiers: right . 01 Clinical history: . Pressure wound . 02 Diagnosis: A. Left trochanteric pressure wound, debridement: - Marked acute inflammation associated with fibrinoid degeneration as well as necrosis, consistent with wound. . B. Right trochanteric pressure wound, debridement: - Marked acute inflammation associated with fibrinoid degeneration as well as necrosis, consistent with wound. . (IUV:hannah; 07/11/2019) MBR 07/11/2019 1457 Local . 02 Electronically signed: . Saima Sanchez MD, Pathologist NPI- [id number] . 01 Gross description: . A. The specimen is received in formalin, labeled "Stephen Coates, left trochanteric pressure wound" and consists of a necrotic ragged segment of guzman-brown skin and underlying tissue measuring 7.5 x 3.4 x 1.5 cm. Senior Hris Analyst sections are submitted in A1. . B. The specimen is received in formalin, labeled "Stephen Coates, right trochanteric pressure roomed" and consists of multiple segments of necrotic guzman-brown skin and soft tissue measuring 8.8 x 8.3 x 1.5 cm in aggregate. Senior Hris Analyst sections are submitted in B1. (SDY; 07/09/2019) SYU/SYU 07/09/2019 1051 Local . 02 Pathologist provided ICD-10: L98.9, I96, S71.002A, S71.001A . 02 CPT . 942028, 917912 Specimen Comment: A courtesy copy of this report has been sent to Specimen Comment: [phone], [place] [address] PATHOLOGY RPT PROCEDURE Name: STEPHEN COATES [place] Room #: 210-P ADM IN M.R.#: [id number] Admission: 07/08/19 Date of : 87 Discharge: Report #: [id number] Path Case #: [id number] Specimen Comment: Report sent to / DR BRUNSON Specimen Comment: Report sent to Performed at: [address], [place] [id number] MD Raffi Gorman MD Phone: [phone] Performed at: [address] [id number] MD Saima Sanchez MD Phone: [phone]
--- NOTE | 2019-07-13 10:25 | NUR ---
WOUND CARE F/U; I WAS ALERTED THAT THIS PATIENT WILL BE GOING TO [facility] TODAY. THE VAC DRESSINGS WERE REMOVED. THE WOUNDS WERE ASSESSED. THE WOUNDS HAVE MORE HEALTHY RED TISSUE TODAY. THERE WAS BLEEDING WHILE TAKING THE DRESSING OFF. ATTEMPTED TO HOLD PRESSURE FOR 5 MINUTES. I USED SILVERNITRATE STICKS TO STOP THE CAPPILLARY BLEEDING. WHEN THE BLEEDING WAS RESOLVED I APPLIED A SALINE MOIST GAUZE AND COVERED WITH AN ABD TO ALL WOUNDS. THE WOUNDS HAD NO ODOR OR ANY S/S OF INFECTION. RECOMMENDATION; SAILINE MOIST DRESSINGS/ABD FOR TRANSPORT TO [facility] THEN START VAC. DISCUSSED WITH KELECHI
--- NOTE | 2019-07-13 10:39 | NUR ---
patient accepted to [facility] they are in process of submitting for auth.
[2019-07-13 12:31] VITALS: BP 103/60
[2019-07-13] MEDS ORDERED: CLARITIN10 MG PO (13:41)
[2019-07-13] MEDS ORDERED: ZOSYN 3.3753.375 GM IV (13:41)
[2019-07-13] MEDS ORDERED: ENOXAPARIN40 MG/0.1 SUBQ (13:41)
[2019-07-13 15:20] VITALS: BP 128/68
--- NOTE | 2019-07-13 17:28 | NUR ---
ASSUMED CARE OF PT AT SHIFT CHANGE. ASSESSMENT CHARTED. MEDS GIVEN PER DEC. VSS. A&OX4. C/O PAIN TREATED WITH PO MEDS. BOWEN WAS IN PLACE. PT WAS INDEPENDENT WITH SELF CARES. FAMILY WAS AT BEDSIDE. DC ORDERS WERE COMPLETE. TELE DC'D. PICC REMAINED IN PLACE. TRANSPORTED VIA NON-EMERGENCY AMBULANCE.
[2019-09-26] MEDS ORDERED: OXYCODONE-ACET1 EAC2 PO (10:44)
== END 2019-07-13 17:19 | DRG 853 ==
LOC: ER 21:20 → 2N 07-08 04:27 → EROBS 07-08 04:27 → 2N 07-08 05:22
PROVIDERS: Emergency Medicine; Nurse Practitioner Family; ADMIT Hospitalist
PROC: 0JBM0ZZ Excision of Left Upper Leg Subcutaneous Tissue and Fascia, Open Approach (ICD-10-PCS; principal; 2019-07-08)
PROC: 0JD90ZZ Extraction of Buttock Subcutaneous Tissue and Fascia, Open Approach (ICD-10-PCS; principal; 2019-07-08)
PROC: 0JDM0ZZ Extraction of Left Upper Leg Subcutaneous Tissue and Fascia, Open Approach (ICD-10-PCS; principal; 2019-07-08)
PROC: 0JB90ZZ Excision of Buttock Subcutaneous Tissue and Fascia, Open Approach (ICD-10-PCS; principal; 2019-07-08)
PROC: 0JBL0ZZ Excision of Right Upper Leg Subcutaneous Tissue and Fascia, Open Approach (ICD-10-PCS; principal; 2019-07-08)
PROC: 02HV33Z Insertion of Infusion Device into Superior Vena Cava, Percutaneous Approach (ICD-10-PCS; principal; 2019-07-08)
PROC: 0JDL0ZZ Extraction of Right Upper Leg Subcutaneous Tissue and Fascia, Open Approach (ICD-10-PCS; principal; 2019-07-08)
DX: A41.1 Sepsis due to other specified staphylococcus (principal); L89.324 Pressure ulcer of left buttock, stage 4; L89.314 Pressure ulcer of right buttock, stage 4; L89.224 Pressure ulcer of left hip, stage 4; L89.214 Pressure ulcer of right hip, stage 4; N39.0 Urinary tract infection, site not specified; T83.518A Infection and inflammatory reaction due to other urinary catheter, initial encounter; G82.20 Paraplegia, unspecified; E44.0 Moderate protein-calorie malnutrition; M86.652 Other chronic osteomyelitis, left thigh; F41.9 Anxiety disorder, unspecified; G89.29 Other chronic pain; N31.9 Neuromuscular dysfunction of bladder, unspecified; R25.2 Cramp and spasm; D64.9 Anemia, unspecified; B96.4 Proteus (mirabilis) (morganii) as the cause of diseases classified elsewhere; Y83.8 Other surgical procedures as the cause of abnormal reaction of the patient, or of later complication, without mention of misadventure at the time of the procedure; R19.7 Diarrhea, unspecified; Z79.899 Other long term (current) drug therapy; Z99.3 Dependence on wheelchair; Z86.718 Personal history of other venous thrombosis and embolism; Z86.14 Personal history of Methicillin resistant Staphylococcus aureus infection; Z87.440 Personal history of urinary (tract) infections; Z68.31 Body mass index [BMI] 31.0-31.9, adult; Y92.89 Other specified places as the place of occurrence of the external cause
CPT/HCPCS: 10081; 27000; 50010; 50101; 50366; 50386; 50403; 50643; 50970; 57119; 57120; 62110; 62900; 70005

== ENCOUNTER → 2019-08-26 | Outpatient (CLI) | payer OTHER ==
[~2019-08-26] MED LIST changes: +CLARITIN10 MG PO; +ENOXAPARIN40 MG/0.1 SUBQ; +ZOSYN 3.3753.375 GM IV
== END ==
LOC: CAT 12:14
DX: M86.8X8 Other osteomyelitis, other site (principal)

== ENCOUNTER → 2019-10-11 | Outpatient (CLI) | payer OTHER | LOC: HYPER 10:00 | DX: L89.314 Pressure ulcer of right buttock, stage 4 (principal); L89.324 Pressure ulcer of left buttock, stage 4; L89.214 Pressure ulcer of right hip, stage 4; L89.224 Pressure ulcer of left hip, stage 4; G82.22 Paraplegia, incomplete; M46.28 Osteomyelitis of vertebra, sacral and sacrococcygeal region; F41.9 Anxiety disorder, unspecified; Z86.718 Personal history of other venous thrombosis and embolism; Z87.820 Personal history of traumatic brain injury; Y24.9XXA Unspecified firearm discharge, undetermined intent, initial encounter ==

== ENCOUNTER → 2019-10-20 | Outpatient (CLI) | payer OTHER ==
[~2019-10-20] MED LIST changes: +ASA81BEC PO; +PERCOCET 10-321 EAC1 PO
[2019-10-20 12:47] VITALS: BP 136/85
--- NOTE | 2019-10-20 12:54 | NUR ---
Pain Clinic Assessment: 1. History of Osteoarthritis: Not Applicable History of Rheumatoid Arthritis: Not Applicable 2. Height: ft. in. cm. Weight: lb. oz. kg. Patient's BMI: 3. Vital Signs: BP: 136/85 Pulse: 95 Resp: 16 Temp: 02 Sat: 94 ECG Mon: 4. Pain Intensity: 7 5. Fall Risk: Dizziness: N Needs help standing or walking: Y Fallen in the last 3 months: N Fall risk comments: 6. Patient on Blood Thinner: None 7. History of Hypertension: N 8. Opioid Therapy greater than 6 weeks: Y Opiate Contract Signed: 05/28/16 9. Risk Assessment Tool Provided: DMITRIY 10. Functional Assessment Tool: 11. Recreational Drug Use: Never Drug Type: Tobacco Use: Never Smoker Tobacco Type: Amount or Packs/day: How Many Years: Alcohol Use: No Frequency: Quant:
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
== END ==
LOC: PAIN 06:45
DX: M54.5 Low back pain (principal); M25.559 Pain in unspecified hip; G89.29 Other chronic pain; R25.2 Cramp and spasm; L89.90 Pressure ulcer of unspecified site, unspecified stage; Z79.899 Other long term (current) drug therapy

== ENCOUNTER → 2019-11-08 | Day surgery (SDC) | payer OTHER ==
[~2019-11-08] VITALS: Ht 195.6 cm; Wt 104.6 kg
[~2019-11-08] MED LIST changes: +AUGMENTIN 875-1 EACH PO; +CLONAZEPAM 0.50.5 M1 PO; +HYDROMORPHO2 MG/1 M1 IV PUSH; +MERREM500 MG IV; +MUCINEX600 MG PO; +NEURONTIN 300M300 M2 PO; +ONDANSETRON4 MG/2 ML IV; +OXYCODONE HCL10 MG PO; +VANCOMYCIN HCL250 MG IV
--- NOTE | ~2019-11-08 | O ---
[facility] [address] [place] [place] [address] OPERATIVE REPORT Name: JUANCARLOS KEY Room #: REG [facility].#: [id number] Admission: 11/08/19 Attend Phys: Rodríguez Gutierrez MD Discharge: Date of : 87 Report #: [id number] THIS REPORT FOR: cc: Doroteo Palma MD, Christopher B. MD Gates,Rodríguez Lynn MD ~ CC: Doroteo Gutierrez DATE OF SERVICE: 11/08/2019 PROCEDURES PERFORMED: 1. Sharp excisional debridement of 4 decubitus pressure wounds using Misonix. 2. Placement of PriMatrix Ag to the left trochanteric wound bed. 3. Placement of wound VAC to all 4 wounds. PREPROCEDURAL DIAGNOSES: Subtrochanteric left ischial tuberosity, right trochanteric and right ischial tuberosity pressure wounds. POSTPROCEDURAL DIAGNOSES: Subtrochanteric left ischial tuberosity, right trochanteric and right ischial tuberosity pressure wounds. SURGEON: Dr. Gutierrez. DIRECTOR STAFFING: None. ANESTHESIA: General. ESTIMATED BLOOD LOSS: 10 mL. URINE OUTPUT: Not measured. COMPLICATIONS: None. SPECIMENS: None. FINDINGS: 1. Left subtrochanteric wound: Stage 4 down to bone, 7.5 cm x 3.5 cm x 2.5 cm. 2. Left ischial tuberosity wound: 4 cm x 3 cm x 3 cm cm deep, stage 4 down to bone. 3. Right ischial tuberosity wound: 2 cm x 5 cm, stage 2. 4. Right trochanteric wound 4.5 cm x 4 cm x 8 cm deep, stage 4 down to bone. DESCRIPTION OF PROCEDURE: After informed consent was obtained, the patient was taken to the operating room and placed in supine position. General anesthesia was induced. Preprocedure antibiotics were administered. He was then [address] [address] OPERATIVE REPORT Name: JUANCARLOS KEY Room #: REG [facility].#: [id number] Admission: 11/08/19 Attend Phys: Rodríguez Gutierrez MD Discharge: Date of : 86 Report #: [id number] transferred to the prone position. All four wounds were prepped and draped in the usual sterile fashion. A timeout was performed, all were in agreement. All four wounds were cleaned and debrided using the Misonix device. The right trochanteric wound did have necrotic bed and all necrotic material was removed using a mixture of pickups and scissors. The wound beds were hemostatic. The left ischial tuberosity wound bed was pink and healthy and had punctate bleeding. Therefore, PriMatrix Ag tissue was brought on to the field. It was placed overlying the wound and secured to the wound with a mixture of evert as well as Vicryl suture. The Adaptic was then placed over this. A wound VAC was placed over all wounds. All wounds were hemostatic. The patient tolerated the procedure well. There were no adverse events throughout the course of procedure. By: [id number] Rodríguez Gutierrez MD /clarisa
[2019-11-08 09:15] LABS: HEMATOCRIT 27.7 % (42.0-52.0); HEMOGLOBIN 8.5 gm/dL (14.0-18.0); MCH 23.1 pg (26.0-34.0); MCHC 30.7 g/dL (28.0-37.0); MCV 75.1 fL (80.0-100.0); RBC 3.69 mil/uL (4.50-6.00); RDW 17.2 % (10.5-14.5); WBC 16.9 thou/uL (4.0-11.0)
[2019-11-08 10:30] VITALS: BP 105/51
[2019-11-08 12:08] VITALS: BP 105/51
== END | disposition home or self-care (01) ==
LOC: OR 08:11
PROVIDERS: Surgery
DX: L89.224 Pressure ulcer of left hip, stage 4 (principal); L89.214 Pressure ulcer of right hip, stage 4; L89.312 Pressure ulcer of right buttock, stage 2; L89.324 Pressure ulcer of left buttock, stage 4; D64.9 Anemia, unspecified; F32.9 Major depressive disorder, single episode, unspecified; F41.9 Anxiety disorder, unspecified; Z79.899 Other long term (current) drug therapy; Z98.890 Other specified postprocedural states; Z86.718 Personal history of other venous thrombosis and embolism; Z87.891 Personal history of nicotine dependence; Z79.01 Long term (current) use of anticoagulants
CPT/HCPCS: 50010; 50101; 50366; 50386; 50403; 50643; 51412; 56524; 57119; 57120; 57143; 62110; 62900; 70005

== ENCOUNTER 2019-11-15 17:58 | Inpatient (IN) | payer OTHER ==
[~2019-11-15] VITALS: Ht 15.2 cm; Wt 104.3 kg
[2019-11-15 18:08] VITALS: BP 128/75
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
[2019-11-15 20:00] VITALS: BP 112/71
[2019-11-16 02:18] LABS: URINE BILIRUBIN NEGATIVE (Negative); URINE BLOOD 2+ (Negative); URINE CLARITY CLEAR; URINE COLOR YELLOW; URINE GLUCOSE-RANDOM* NEGATIVE (Negative); URINE KETONES NEGATIVE (Negative); URINE LEUKOCYTES TRACE (Negative); URINE NITRITE NEGATIVE (Negative); URINE PROTEIN (DIPSTICK) 2+ (Negative); URINE SPECIFIC GRAVITY 1.025 (1.005-1.035); URINE UROBILINOGEN 0.2 E.U./dl (0.2-1.0)
--- NOTE | 2019-11-16 02:23 | NUR ---
ASSESSED AT START OF SHIFT. PT A&OX4 SCHEDULED NIGHT TIME MEDS GIVEN AND PAIN MEDS ALSO GIVEN FOR PAIN OF 10/10 SEE EMAR. DRESSING AND FOLLEY INTACT. PT HAD A TEMP OF 101 CALLED EQUIPMENT SERVICE TECHNICIAN AND SPOKE WITH DR SIMONS ORDERS RECIVED TO GIVE TYLENOL, LAB DRAWS AND UA SAMPLE. UA SENT TO THE LAB WILL CONT TO MONITOR. PT ON R/A, PARAPLEGIC AND W/C BOUND. DR GARZON TO FF UP IN THE MORNING. WILL CONT WITH POC TILL EOS.
[2019-11-16 02:49] LABS: BACTERIA 1-9 Few /HPF (None Seen); MUCUS 0-3 Light strn/LPF (None Seen); URINE WBC 6-15 Few /HPF (0-5)
[2019-11-16 02:50] LABS: AMORPHOUS URATES Moderate /LPF (None Seen); HYALINE CASTS 0-3 Few /LPF (None Seen); SQUAMOUS 0-3 Few /LPF (0-3); YEAST Present (None Seen)
[2019-11-16 04:20] VITALS: BP 121/62
[2019-11-16 04:34] LABS: HEMOGLOBIN 6.8 gm/dL (14.0-18.0); MCV 74.3 fL (80.0-100.0)
[2019-11-16 04:37] LABS: HEMATOCRIT 21.7 % (42.0-52.0); MCH 23.2 pg (26.0-34.0); MCHC 31.2 g/dL (28.0-37.0); RBC 2.92 mil/uL (4.50-6.00); RDW 17.6 % (10.5-14.5); WBC 12.1 thou/uL (4.0-11.0)
[2019-11-16 04:39] LABS: ALBUMIN 2.1 g/dL (3.4-5.0); CALCIUM 9.2 mg/dL (8.5-10.1); CREATININE 1.4 mg/dL (0.7-1.3); POTASSIUM 3.6 mmol/L (3.5-5.1); TOTAL BILIRUBIN 0.3 mg/dL (<0.1-1.0); TOTAL PROTEIN 8.2 g/dL (6.4-8.2)
[2019-11-16 08:23] VITALS: BP 134/58
--- NOTE | 2019-11-16 12:35 | NUR ---
WOUND CARE CONSULT ROUNDING W/ DR PETER MONTENEGRO, ASSESSED WOUNDS W/ COAL CARRIER DR ANDREW TO ENTER ORDERS FOR WOUND CARE, ODOR NOTED, WOUNDS BILAT ISCHIAL AND HIPS, ODOR NOTED, PT ALERT AND COOPERATIVE, NONVIABLE TISSUE NOTED SUKHDEV L ISCHIAL WOUND, STRESS TO PT IMPORTANCE OF OFF LOADING, PRESSURE RELIEF RECOMMENDATIONS, TO WRITE ORDERS W/ CLARA, LOW AIR LOSS PUMP ORDERED. PHOTOS TODAY, COAL CARRIER AWARE
--- NOTE | 2019-11-16 14:19 | NUR ---
Assess due to pt with multiple chronic bilateral IT and trocanter wounds due to hx paralysis. Wt is stable around usual wt 225-240 lb. Eats well, drinks oral supplements when offered-ordered bid. Does not eat beef or pork for advent reasons but will eat other high protein foods. Low nutrition risk with appropriate nutrition interventions in place
[2019-11-16 17:56] VITALS: BP 120/81
--- NOTE | 2019-11-16 20:35 | NUR ---
PT TURNS OFTEN, NEEDS REMINDERS AT TIMES, BUT HAS STRENGTH TO MOVE SELF IN BED. WOUND CARE COMPLETED AND PICTURES OBTAINED, CULTURES SENT FROM DIFFERENT SITES. PT REQUESTS DOOR TO BE CLOSED, FOLLOWED PT REQUESTS AND EDUCATED STAFF ON REQUESTS. PT REPORTS PAIN PARTIALLY MANAGED WITH MEDICATION PRESCRIBED. PT SIGNIFICANT OTHER REQUESTS TO BATH PATIENT AND COMPLETE BOWEN CARE, BOTH PT AND SO DO NOT WANT STAFF TO ASSIST WITH CLEANING/BATHING. SUPPLIES AND SET UP PROVIDED.
[2019-11-16 21:15] VITALS: BP 131/65
[2019-11-17 05:56] VITALS: BP 105/64
--- NOTE | 2019-11-17 06:23 | NUR ---
PT AOX4. PT REPORTS MODERATE TO SEVERE PAIN IN WOUND AREAS ON HIPS, ISCHIAL TUBEROSITIES. PT RECEIVING PRN PO OXYCODONE Q4HR. PT NOTED TO HAVE INCREASED PAIN WITH REPOSITIONING AND TACTILE STIMULATION. PT REFUSED WOUND DRESSING CHANGES AND REPOSITIONING UNTIL IV ANTIBIOTICS FINISHED. PT ABLE TO ASSIST WITH TRANSFERS AND TURNS. WOUND DRESSINGS CHANGED AND BED BATH COMPLETED PRIOR TO END OF SHIFT. PT TOLERATING PO INTAKE WITHOUT ISSUE. PT ENCOURAGED TO NOTIFY STAFF FOR ALL NEEDS. CALL LIGHT WITHIN REACH, BED ALARM ON, BED IN LOWEST POSITION. WILL CONTINUE TO MONITOR.
[2019-11-17 08:00] VITALS: BP 122/75
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
--- NOTE | 2019-11-17 14:28 | NUR ---
VASCULAR ACCESS TEAM CONSULTED FOR PICC PLACEMENT. DISCUSSED BENEFITS AND RISKS WITH PT,VERBALIZED UNDERSTANDING. ORDRE,CONSENT,LABS,HISTORY AND MEDS REVIEWED. BETH BRACHAIAL WAS WIDELY PATENT WITH USG. 4FR SL POWER PICC TRIMMED TO 48CM INSERTED TO 3CM EXTERNAL. STAT CXR ORDERED.
--- NOTE | 2019-11-17 14:56 | NUR ---
CXR CONFIRMED PICC PLACEMENT, PICC RELEASED FOR IMMEDIATE USE TO SHAKIR RN PER PROTOCOL
[2019-11-17 14:59] VITALS: BP 111/66
[2019-11-17 19:45] VITALS: BP 111/55
[2019-11-17 21:00] VITALS: BP 111/60
[2019-11-18 04:59] VITALS: BP 121/77
--- NOTE | 2019-11-18 05:08 | NUR ---
ASSUMED PT CARE AT 2200. PT REPORTING MINIMAL PAIN, NO PAIN MEDS REQUIRED. FEVER ALL NIGHT, TYLENOL BEING GIVEN. NPO AT MIDNIGHT. ANTIBIOTICS INFUSED PER ORDER. CATHETER PATENT WITH GOOD OUTPUT. PT IN GOOD SPIRITS, IN AND OUT OF SLEEP ALL EVENING, WILL CONTINUE TO MONITOR.
[2019-11-18 06:18] LABS: HEMOGLOBIN 6.5 gm/dL (14.0-18.0)
[2019-11-18 06:20] LABS: HEMATOCRIT 20.4 % (42.0-52.0); MCH 23.6 pg (26.0-34.0); MCHC 31.9 g/dL (28.0-37.0); MCV 73.9 fL (80.0-100.0); RBC 2.76 mil/uL (4.50-6.00); RDW 17.7 % (10.5-14.5); WBC 13.3 thou/uL (4.0-11.0)
[2019-11-18 06:50] LABS: CALCIUM 8.6 mg/dL (8.5-10.1); CREATININE 1.2 mg/dL (0.7-1.3); POTASSIUM 3.4 mmol/L (3.5-5.1)
--- NOTE | 2019-11-18 09:02 | NUR ---
PT ADMITTED RELATED TO INFECTED DECUBITUS ULCER. PT HAD BEEN HERE AND DC'D HOME 11/04/19. PT HAD USED [facility] [phone] ph [phone] UPON DC. PT'S MOTHER MARIAMA IS HIS PAID CAREGIVER THROUGH [employer]. PT HAS ALL RECOMMENED DME AT HOME. PT HAD COME IN AND HAD OUTPATIENT I&D DONE 11/10 AND WOUND CARE CLINIC HADN'T SENT ORDERS TO RESUME HIS HH SERVICES AFTER PROCEDURE THEREFORE PT READMITTED. PLAN IS FOR PT TO [facility]URN [facility]. CM TO FOLLOW INDICATED WITH DC PLANNING.
--- NOTE | 2019-11-18 12:15 | NUR ---
NOTE FOR 11/17/19 PT CARE ASSUMED AT 0700. PT HAS A FEVER OF 101.8 DR. GARZON MADE AWARE OF IT AND HE ORDERED A BOLUS AND A PICC LINE DUE TO NO IV ACCESS AND BEING A HARD STICK WITH IV ANTIBIOTICS. PICC LINE WAS PLACED, PLACEMENT VERIFIED. IV ANTIBIOTICS RETIMED. PT IS TO BE NPO AFTER MIDNIGHT FOR DEBRIMENT IN THE MORNING. COLD WASH CLOTHS APPLIED TO THE FEET AND GROIN TO BRING TEMP DOWN AND TYLENOL GIVEN. PAIN MEDICATION WAS ADJUSTED PER MD DUE TO PAIN NOT MANAGED WELL WITH WHAT WAS ORDERED. MOTHER AND BROTHER AT BED SITE. ID ON BOARD. FLUIDS INFUSING. PICC LINE PATENT WITH NO REDNESS OR EDEMA. BLOOD ASPIRATED AND FLUSHES WELL.
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
[2019-11-18 16:34] VITALS: BP 95/52
[2019-11-18 19:50] VITALS: BP 101/59
[2019-11-19 00:43] VITALS: BP 105/59
--- NOTE | 2019-11-19 02:05 | NUR ---
ASSUMED PT CARE AT 1900. WOUND VAC IS IN PLACE AND FUNCTIONING PROPERLY. PT ATE FOOD BROUGHT BY FAMILY. COMPLAINS OF SPASMS, MEDS GIVEN. PM MEDS PASSED. WATCHING TV IN BED ALL SHIFT, WILL CONTINUE TO MONITOR.
[2019-11-19 10:11] VITALS: BP 122/64
--- NOTE | 2019-11-19 11:56 | NUR ---
PT CARE ASSUMED AT 0700. A&Ox4. PT HAS NOT REQUESTED ANY PAIN MEDICATION ALL MORNING AND HAS SLEPT MOST OF THE MORNING. BACLOFEN AND CLONAZEPAM HAVE BEEN CHANGED FROM PRN TO SCHEDULED QID. PT IS ON DIET SUPPLEMENTS. HAS FENTANYL PRN ON BOARD FOR BREAKTHROUGH PAIN. PICC LINE IS PATENT WITH FLUSHBACK AND NO REDNESS OR EDEMA. FALL PROTOCOL IN PLACE WITH CALL LIGHT IN REACH. WOUNDS ARE MANAGED WITH WOUND TEAM. WOUND VAC IN PLACE WITH A AIRLOSS PUMP. FLUIDS INFUSING.
[2019-11-19 16:50] VITALS: BP 134/67
[2019-11-19 20:15] VITALS: BP 88/38
--- NOTE | 2019-11-20 03:31 | NUR ---
PT LYING IN BED. FENTANYL AND OXY PROVIDING PAIN RELIEF. RESTING COMFORTABLY. NO NEEDS VOICED. CALL LIGHT WITHIN REACH. WILL CONTINUE TO PROVIDE FREQUENT OBSERVATION.
[2019-11-20 08:23] LABS: HEMOGLOBIN 6.5 gm/dL (14.0-18.0); MCH 23.2 pg (26.0-34.0); MCV 74.9 fL (80.0-100.0)
[2019-11-20 08:25] LABS: HEMATOCRIT 20.9 % (42.0-52.0); RBC 2.79 mil/uL (4.50-6.00); RDW 17.8 % (10.5-14.5); WBC 16.1 thou/uL (4.0-11.0)
[2019-11-20 08:28] VITALS: BP 88/47
[2019-11-20 08:31] LABS: CALCIUM 8.5 mg/dL (8.5-10.1); POTASSIUM 3.6 mmol/L (3.5-5.1)
[2019-11-20 13:00] VITALS: BP 108/77; BP 115/65
[2019-11-20 13:30] VITALS: BP 117/65
[2019-11-20 16:48] LABS: HEMOGLOBIN 7.9 gm/dL (14.0-18.0)
--- NOTE | 2019-11-20 19:46 | NUR ---
PT ALERT AND ORIENTED TIMES FOUR. BP LOW THIS MORNING AWARE. OTHER VSS. IVF INFUSING PER ORDER, WOUND VAC IN PLACE, BOWEN TO DD. PT C/O PAIN PRN PAIN MEDICATIONS CONTROLLING PAIN WELL. ONE UNIT OF BLOOD GIVEN TO PT WITH NO ISSUES. PT TOLERATES MEDS AND MEALS. FAMILY AT BEDSIDE. WILL CONTINUE TO MONITOR.
[2019-11-20 22:37] VITALS: BP 121/73
--- NOTE | 2019-11-21 04:37 | NUR ---
PT LYING IN BED. FENTANYL AND OXY PROVIDING PAIN RELIEF. RESTING COMFORTABLY. NO NEEDS VOICED. CALL LIGHT WITHIN REACH. FREQUENT OBSERVATION.
[2019-11-21 05:38] VITALS: BP 91/59
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
--- NOTE | 2019-11-21 16:03 | NUR ---
WOUNDE CARE F/U; S/P SURGICAL DEBRIDEMENT. ALL WOUNDS ARE CLEAN TODAY EXCEPT THE LEFT HIP WOUND THERE IS TENDON THAT IS PRESENT W/ NECROSIS. NO ODOR TO ANY WOUND, GOOD HEALTHY TISSUE IN THE OTHER WOUNDS. THE RIGHT HIP PROBES TO BONE. RECOMMEDATION; CONTINUE VAC THERAPY PREVIOUS. DISCUSSED WITH KELECHI
--- NOTE | 2019-11-21 16:08 | NUR ---
PHYSICIAN INDICATED THAT TRANSFER TO SHOULD BE INITIATED. CM CALLED TRANSFER COR. AND FAXED INFO OVER FOR REVIEW. [facility] CALLED BACK AND INDICATED THAT THEY AREN'T ABLE TO ACCEPT FOR INPATIENT TRANSFER HE IS [place] MEDICAID [place]. CM TO FOLLOW UP WITH OP [facility] WHERE APT HAD BEEN MADE FOR PT PREVIOUSLY TO DETERMINE WHEN APPOINTMENT WAS AND CARE TEAM INDICATED THAT PT COULD GO TO [facility] UNTIL OP APPOINTMENT. CM TO FOLLOW INDICATED WITH DC PLANNING.
[2019-11-21 17:09] VITALS: BP 131/79
[2019-11-21 19:30] VITALS: BP 99/73
--- NOTE | 2019-11-21 20:29 | NUR ---
PT A&OX4. PARA. PICC LINE IS IN BETH. BOWEN CATH IN PLACE. WOUND VAC REPLACED BY WOUND CARE TEAM PICS ALSO TAKEN. PAIN HAS NOT BEEN MANAGED SINCE I&D PROCEDURE. DR. GARNER INFORMED AND CHANGED PAIN MEDS, PT PAIN NOW IN CONTROL. SEVERAL FAMILY MEMBERS AND S/O IN ROOM THROGHOUT THE DAY WITH DIFFERENT COMPLAINTS FROM NURSING CARE YESTERDAY TO INCORRECT MEALS. PEDIATRIC SPEECH LANGUAGE PATHOLOGIST AND COMPOSITE SCIENCE TEACHER AWARE. WILL CONT POC.
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
[2019-11-22 07:30] VITALS: BP 137/78
--- NOTE | 2019-11-22 08:31 | NUR ---
Assumed care of patient approx 07:15 with report given outside the room per pt request to not be bothered. Knocked and entered room upon pt permission. Introduced self to patient and reminded him that this nurse also cared for him last week. He acknowledged and allowed nurse to update white board. room service waiter/waitress nurse had medication on the pt table that pt did not want to immediately take. Educated pt on medication safety and informed that nurse was not able to leave meds unattended. Provided pt with option to take medication or offered to dispose of medication, document and administer when patient was ready for his medicine. Pt refused, threatened staff, stated, "Touch my medicine and you're gonna see a whole different Preston." Informed pt that we are unable to leave medication attended and that he could choose to take or we could dispose of meds for him. Pt opted to take medication in front of nurse. Discussed when nurse would return to patient room and encouraged to call with any needs. Dietary called and requested patient breakfast order. Patient stated, " I don't even feel like doing that." Discussed with patient that dietary would bring house tray if order not placed. Patient stated, "That's fine."
[2019-11-22] MEDS ORDERED: MERREM500 MG IV (13:10)
[2019-11-22] MEDS ORDERED: VANCOMYCIN HCL250 MG IV (13:12)
[2019-11-22] MEDS ORDERED: HYDROMORPHO2 MG/1 M1 IV PUSH (13:18)
[2019-11-22] MEDS ORDERED: OXYCODONE HCL10 MG PO (13:19)
[2019-11-22] MEDS ORDERED: ACETAMINOPHEN325 M1 PO (13:19)
--- NOTE | 2019-11-22 14:13 | NUR ---
FAXED REFERRAL TO [facility] SPOKE WITH BUBBA IN ADM SHE RECEIVED REFERRAL AND WILL CHECK INSURANCE. DP TO FOLLOW.
[2019-11-22 15:05] VITALS: BP 115/67
--- NOTE | 2019-11-22 15:08 | NUR ---
CM SPOKE WITH PT AND MOTHER THEY ARE AGREEABLE WITH REFERRAL BEING SENT TO [facility] FOR REVIEW FOR POSSIBLE ADMISSION. BUBBA LIAISON IS GOING TO COME AND DO ONSITE VIST TODAY. CM CALLED [facility] AND LEFT VM. CM FAXED OVER REFERRAL FOR REVIEW FOR POSSIBLE OP APPOINTMENT FOR BONY DEBRIDEMENT AND FLAP RECONSTRUCTION. CM TO FOLLOW INDICATED WITH DC PLANNING.
--- NOTE | 2019-11-22 16:22 | NUR ---
I have reviewed and concur with student documentation.
[2019-11-22 20:45] VITALS: BP 96/67
--- NOTE | 2019-11-23 03:39 | NUR ---
ASSESSED AT START OF SHIFT DURING REPORT PT STATED HE HAD A LARGE BM IN BED THAT WAS CLEANED OUT AND WITH THAT HIS WOUND VAC ON LFT SIDE OF BUTTOCK CAME OUT STATED HE NOTIFIED DAY AID. PER REPORT PT REFUSES BED VALERA. PER PT REQUEST WILL LIKE TO GET A NEW DRESSING IN PLACE. DRESSING ORDERED PLACED TO CS. PT WASN'T HAPPY THAT HIS WOUNDS WERE OPEN TO AIR FOR A LONG TIME. RECIEVIED SUPPLY FROM CS WOUND CLEANED AND DRESSING CHANGED AND REINFORCED WITH HELP FROM CHARGE NURSE WOUND VAC SUCTIONING WELL. ADDED WET TO DRY DRESSING TO INNER PART OF BUTTOCK. PT WAS GIVEN PAIN MED. IV INTACT AND ABX INFUISING. CALL LIGHT IN REACH AND WILL CONT WITH POC TILL EOS.
[2019-11-23 06:24] LABS: HEMOGLOBIN 7.2 gm/dL (14.0-18.0); MCH 23.8 pg (26.0-34.0); MCHC 31.2 g/dL (28.0-37.0); MCV 76.1 fL (80.0-100.0); RBC 3.02 mil/uL (4.50-6.00); RDW 18.4 % (10.5-14.5); WBC 15.1 thou/uL (4.0-11.0)
[2019-11-23 06:44] LABS: CALCIUM 8.8 mg/dL (8.5-10.1); CREATININE 0.8 mg/dL (0.7-1.3); POTASSIUM 3.9 mmol/L (3.5-5.1)
[2019-11-23 07:30] VITALS: BP 99/55
--- NOTE | 2019-11-23 13:57 | NUR ---
ELIOT FOLLOWED UP WITH LIAISON WITH AT [facility] SHE INDICATED NO OPEN BED TODAY BUT THAT PT IS NEXT ON THE LIST FOR ADMISSION AND THAT IT LOOKS LIKELY FOR ADMISSION TOMORROW. CM CALLED OVER TO [facility] AND THEY INDICATED THAT PT'S OP APPOINTMENT IS 12/01 AT 1:30. CM NOTIFIED DR. SIMONS, PT, AND MOTHER. CM TO FOLLOW INDICATED WITH DC PLANNING.
--- NOTE | 2019-11-23 14:02 | NUR ---
Received awake on bed. Due medications given as prescribed, able to swallow tablets w/o difficulty. On room air. Vital signs stable. A+Ox4, paraplegic. Assisted in ADLs. On regular diet- tolerating well; no nausea, no vomting and no abdominal pain noted. With relative at bedside. With brock in place- draining well; output measured and recorded accordingly. Wuth wound at buttocks connected to wound vac- as per manager shift nurse, dressing was re-inforced d/t bowel movement, wound nurse александр informed re: re- application of wound vac and for possible photos to be taken since pt for possible d/c to [facility] today. With PICC line at R upper arm- intact and flushing well, on IV antibiotics. Pt refusing turns. Complained of pain, due medications given as prescribed. A/W CM update re: placement.
[2019-11-23 16:52] VITALS: BP 116/70
[2019-11-23 19:30] VITALS: BP 98/63
--- NOTE | 2019-11-24 04:12 | NUR ---
ASSESSED AT START OF SHIFT PT A&OX4. WITH C/O OF PAIN. MEDS GIVEN SEE EMAR. DRESSING INTACT AND WOUNDVAC INPLACE. PICC LINE INTACT AND ANTIBIOTICS INFUISING. FOLLEY CATH IN PLACE, PT A PARAPLEGIC AND MOVES SELF IN BED. CALL LIGHT IN REACH . WILL CONT WITH POC TILL EOS.
[2019-11-24 04:20] VITALS: BP 116/58
--- NOTE | 2019-11-24 09:57 | NUR ---
yarelis spoke with jes with [facility] liaison rt if have open bed today. " wont have bed today, should have bed tomorrow"/jes. yarelis passed on information to bedside nurse and MD. will cont following as needed for dc needs.
[2019-11-24 10:12] VITALS: BP 101/51
--- NOTE | 2019-11-24 10:31 | NUR ---
late note entry 11/17/19 1900 assumed care of pt after report from day shift, pt resting in bed with no complaints. [address] and notified him of pt temp 102.9 oral, and Lovenox ordered at 2100 with pt going for debreidment in AM, orders to remain with current tylenol dosing and to hold lovenox dose this pm received from Dr Loya. 0 Report given to Arabella LORENZ and care turned over
[2019-11-24] MEDS ORDERED: ONDANSETRON4 MG/2 ML IV (11:46)
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
--- NOTE | 2019-11-24 14:07 | NUR ---
Nutrition: Following for oral intake. Note new discharge orders in today. Pt not seen today. Per nursing notes, discharge imminent later tonight/early in AM. Pt continues to eat incredibly well on a regular diet. Meal average = 80% per the last 13 recorded meals. Ate 100% of all recorded meals yesterday. Continues to receive Ensure Enlive BID with 60% supplement average. Each Ensure Enlive provides 350 kcals, 20 g protein. No new weights to review since 11/19. Recent BM 11/22. As pt consuming high po/protein, no new interventions indicated at this time. Keep as low nutrition risk.
--- NOTE | 2019-11-24 15:13 | NUR ---
CARE ASSUMED FROM KELECHI MOORE AT 1300. PT LYING IN BED, HOB AT 30, VISITOR AT SIDE. PT STATES PAIN 6/10 IN BUTTOCK AREA, PAIN MED GIVEN, IV TEAM PT ALTEPLACE IN PICC LINE TO HELP DISSOLVE PRESENTLY FORMING CLOTS, WILL START IV SOON GIVEN PERMISSION BY VASCULAR ACCESS TEAM.
--- NOTE | 2019-11-24 15:16 | NUR ---
PICC SINGLE LUMEN FLUSHES SLUGGLISHLY AND DOES NOT HAVE A BLOOD RETURN. ALTEPLASE IVP INTO SINGLE LUMEN PICC AND LEFT FOR OVER ONE HOUR.
--- NOTE | 2019-11-24 15:21 | NUR ---
PT DISCHARGING TODAY TO [facility] FAXED DC ORDERS/SUMMARY SPOKE WITH ADM. THEY RECEIVED DC ORDERS. TRANSPORT ARRANGED THROUGH [facility] TRIP #[id number] SET UP FOR 1730 WC VAN NURSING TO PROVIDE WC AND THEY WILL RETURN AFTER PT IS TRANSPORTED. UNIT NOTIFIED AND CHART COPY PER US. RN TO CALL REPORT TO [phone].
--- NOTE | 2019-11-24 16:35 | NUR ---
report given to barb Porras
--- NOTE | 2019-11-24 18:38 | NUR ---
PT WAITING FOR STRETCHER TRANSPORT, WOUND VAC REMOVED FOR TRANSPORT, WET TO DRY DRESSINGS APPLIED.
--- NOTE | 2019-11-25 02:22 | NUR ---
THERE WAS A MISCOMMUNICATION WITH THE TRANSPORTATION [facility]. PICKED UP THE PATIENT 11/25/19 AT 0100. SENT WITH BELONGINGS AND PAPERWORK.
--- NOTE | 2019-11-25 02:47 | NUR ---
ASSUMED PT CARE AT
--- NOTE | 2019-11-30 14:36 | D ---
[facility] [place] [address] DISCHARGE SUMMARY Name: JUANCARLOS KEY Room #: 439-P [facility] IN M.R.#: [id number] Admission: 11/15/19 Attend Phys: Alice Kothari Discharge: 11/25/19 Date of : 87 Report #: [id number] THIS REPORT FOR: cc: Doroteo Palma MD, Christopher B. MD Peters, David W. MD ~ THIS REPORT FOR: //name// CC: Doroteo Palma DATE OF SERVICE: 11/25/2019 FINAL DIAGNOSES: 1. Stage 4 pressure ulcer, left trochanter. 2. Stage 4 pressure ulcer, left ischial tuberosity. 3. Stage 4 pressure ulcer, right trochanter with osteomyelitis. 4. Stage 3 pressure ulcer, right ischial tuberosity. 5. Stage 2 pressure ulcer, sacrum. 6. Paraplegia. 7. Neurogenic bladder. 8. Microcytic anemia. 9. Severe protein-calorie malnutrition. 10. Chronic neuropathic pain syndrome. HOSPITAL COURSE: The patient was admitted for his wounds. He underwent surgical debridement and had IV antibiotics. The wound care team followed him. He was having pain issues that were resolved with increased doses of oral oxycodone with p.r.n. Dilaudid for severe pain related to the multiple debridements and especially around the large wound on the left leg. He received 1 unit of blood transfusion for microcytic anemia. He was on DVT prophylaxis. There were no overt signs of bleeding. He had previously received IV iron within the last month. Ultimately, working with social work. The plan was to transfer to an LTAC facility for ongoing wound care, antibiotics and hopefully transfer to a tertiary care center for multiple myocutaneous flap closure procedure. DISPOSITION: He is being transferred to [facility] under the care of their in-house physician. Regular diet, bed rest, wound care to continue IV antibiotics. I have signed his transfer and discharge medication list electronically. <ELECTRONICALLY SIGNED> By: Juan Antonio Miller MD 11/30/19 1436 [id number] 1150 Juan Antonio Miller MD /nt
== END 2019-11-25 01:00 | DRG 853 ==
LOC: 4S 17:58
PROVIDERS: Internal Medicine Geriatric Medicine; ADMIT Internal Medicine
PROC: 02HV33Z Insertion of Infusion Device into Superior Vena Cava, Percutaneous Approach (ICD-10-PCS; principal; 2019-11-17)
PROC: B548ZZA Ultrasonography of Superior Vena Cava, Guidance (ICD-10-PCS; principal; 2019-11-17)
PROC: 0JB70ZZ Excision of Back Subcutaneous Tissue and Fascia, Open Approach (ICD-10-PCS; 2019-11-18)
PROC: 0JBL0ZZ Excision of Right Upper Leg Subcutaneous Tissue and Fascia, Open Approach (ICD-10-PCS; 2019-11-18)
PROC: 0JBM0ZZ Excision of Left Upper Leg Subcutaneous Tissue and Fascia, Open Approach (ICD-10-PCS; 2019-11-18)
DX: A41.9 Sepsis, unspecified organism (principal); L89.224 Pressure ulcer of left hip, stage 4; L89.214 Pressure ulcer of right hip, stage 4; L89.153 Pressure ulcer of sacral region, stage 3; L89.323 Pressure ulcer of left buttock, stage 3; L89.313 Pressure ulcer of right buttock, stage 3; E43 Unspecified severe protein-calorie malnutrition; T83.518A Infection and inflammatory reaction due to other urinary catheter, initial encounter; G82.20 Paraplegia, unspecified; Z68.42 Body mass index [BMI] 45.0-49.9, adult; N31.9 Neuromuscular dysfunction of bladder, unspecified; D50.9 Iron deficiency anemia, unspecified; G89.4 Chronic pain syndrome; F43.10 Post-traumatic stress disorder, unspecified; Y84.6 Urinary catheterization as the cause of abnormal reaction of the patient, or of later complication, without mention of misadventure at the time of the procedure; N30.90 Cystitis, unspecified without hematuria; D64.9 Anemia, unspecified; F41.9 Anxiety disorder, unspecified; Z86.14 Personal history of Methicillin resistant Staphylococcus aureus infection; Z79.899 Other long term (current) drug therapy; Y92.89 Other specified places as the place of occurrence of the external cause; Z87.440 Personal history of urinary (tract) infections; Z79.82 Long term (current) use of aspirin
CPT/HCPCS: 10102; 27000; 50010; 50101; 50366; 50386; 50403; 50643; 57119; 57120; 62110; 62900; 70005

== ENCOUNTER → 2019-11-15 | Outpatient (CLI) | payer OTHER ==
[~2019-11-15] MED LIST changes: -HYDROMORPHO2 MG/1 M1 IV PUSH; -MERREM500 MG IV; -ONDANSETRON4 MG/2 ML IV; -OXYCODONE HCL10 MG PO; -VANCOMYCIN HCL250 MG IV
== END ==
LOC: HYPER 14:47
DX: L89.314 Pressure ulcer of right buttock, stage 4 (principal); L89.324 Pressure ulcer of left buttock, stage 4; L89.214 Pressure ulcer of right hip, stage 4; L89.224 Pressure ulcer of left hip, stage 4; L89.153 Pressure ulcer of sacral region, stage 3; G82.22 Paraplegia, incomplete; M46.28 Osteomyelitis of vertebra, sacral and sacrococcygeal region; F41.9 Anxiety disorder, unspecified; Z87.820 Personal history of traumatic brain injury; Z86.718 Personal history of other venous thrombosis and embolism

== ENCOUNTER → 2020-01-10 | Outpatient (CLI) | payer OTHER ==
[~2020-01-10] MED LIST changes: +HYDROMORPHO2 MG/1 M1 IV PUSH; +MERREM500 MG IV; +ONDANSETRON4 MG/2 ML IV; +OXYCODONE HCL10 MG PO; +VANCOMYCIN HCL250 MG IV
== END ==
LOC: HYPER 10:51
DX: L89.314 Pressure ulcer of right buttock, stage 4 (principal); L89.324 Pressure ulcer of left buttock, stage 4; L89.214 Pressure ulcer of right hip, stage 4; L89.224 Pressure ulcer of left hip, stage 4; L89.153 Pressure ulcer of sacral region, stage 3; M46.28 Osteomyelitis of vertebra, sacral and sacrococcygeal region; L84 Corns and callosities; G82.22 Paraplegia, incomplete; F41.9 Anxiety disorder, unspecified; Z86.718 Personal history of other venous thrombosis and embolism; Z87.820 Personal history of traumatic brain injury

== ENCOUNTER → 2020-01-24 | Outpatient (CLI) | payer OTHER | LOC: HYPER 14:39 | DX: L89.314 Pressure ulcer of right buttock, stage 4 (principal); L89.324 Pressure ulcer of left buttock, stage 4; L89.214 Pressure ulcer of right hip, stage 4; L89.224 Pressure ulcer of left hip, stage 4; L89.153 Pressure ulcer of sacral region, stage 3; L84 Corns and callosities; G82.22 Paraplegia, incomplete; M46.28 Osteomyelitis of vertebra, sacral and sacrococcygeal region; F41.9 Anxiety disorder, unspecified; Z86.718 Personal history of other venous thrombosis and embolism; Z87.820 Personal history of traumatic brain injury ==

== ENCOUNTER → 2020-02-16 | Outpatient (CLI) | payer OTHER ==
[~2020-02-16] VITALS: Ht 193 cm; Wt 113.4 kg
[~2020-02-16] MED LIST changes: +ENDOCET 10-3251 EACH PO; +GABAPENTIN600 M1 PO; -NEURONTIN 300M300 M2 PO; +NEURONTIN800 MG PO
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
[2020-02-16 13:24] VITALS: BP 127/92
--- NOTE | 2020-02-16 13:28 | NUR ---
Pain Clinic Assessment: 1. History of Osteoarthritis: NONE History of Rheumatoid Arthritis: NONE 2. Height: 6 ft. 4 in. 193.0 cm. Weight: 250.0 lb. oz. 113.400 kg. Patient's BMI: 30.4 3. Vital Signs: BP: 127/92 Pulse: 116 Resp: 18 Temp: 02 Sat: 98 ECG Mon: 4. Pain Intensity: 10 5. Fall Risk: Dizziness: N Needs help standing or walking: Y Fallen in the last 3 months: N Fall risk comments: WHEELCHAIR 6. Patient on Blood Thinner: None 7. History of Hypertension: N 8. Opioid Therapy greater than 6 weeks: Y Opiate Contract Signed: 05/28/16 9. Risk Assessment Tool Provided: OSATISH 10. Functional Assessment Tool: 11. Recreational Drug Use: Past greater than 3 mos Drug Type: MJ Tobacco Use: Former Smoker Tobacco Type: Amount or Packs/day: How Many Years: Alcohol Use: Yes Frequency: Weekly Quant:
== END ==
LOC: PAIN 06:55
DX: G81.10 Spastic hemiplegia affecting unspecified side (principal); G89.29 Other chronic pain; G89.4 Chronic pain syndrome; F11.20 Opioid dependence, uncomplicated; L89.90 Pressure ulcer of unspecified site, unspecified stage; Z79.899 Other long term (current) drug therapy

== ENCOUNTER → 2020-05-28 | Outpatient (CLI) | payer OTHER ==
[~2020-05-28] VITALS: Ht 193 cm; Wt 117.9 kg
[~2020-05-28] MED LIST changes: +CIPRO500 M1 PO
[2020-05-28 14:26] VITALS: BP 165/78
--- NOTE | 2020-05-28 14:30 | NUR ---
Pain Clinic Assessment: 1. History of Osteoarthritis: NONE History of Rheumatoid Arthritis: NONE 2. Height: 6 ft. 4 in. 193.0 cm. Weight: 260.0 lb. oz. 117.936 kg. Patient's BMI: 31.7 3. Vital Signs: BP: 165/78 Pulse: 124 Resp: 20 Temp: 02 Sat: 100 ECG Mon: 4. Pain Intensity: 4 5. Fall Risk: Dizziness: N Needs help standing or walking: N Fallen in the last 3 months: N Fall risk comments: WHEELCHAIR 6. Patient on Blood Thinner: None 7. History of Hypertension: N 8. Opioid Therapy greater than 6 weeks: Y Opiate Contract Signed: 05/28/16 9. Risk Assessment Tool Provided: DMITRIY 10. Functional Assessment Tool: 11. Recreational Drug Use: Past greater than 3 mos Drug Type: Tobacco Use: Former Smoker Tobacco Type: Amount or Packs/day: How Many Years: Alcohol Use: Yes Frequency: Quant:
--- NOTE | 2020-05-29 14:17 | HPC ---
[facility] [address] [place] [address] PAIN MANAGEMENT CONSULTATION Name: JUANCARLOS KEY Room #: REG MARIA C Pk.#: [id number] Admission: 05/28/20 Attend Phys: Leslie Sandoval Discharge: Date of : 87 Report #: [id number] THIS REPORT FOR: cc: Doroteo Palma MD, Christopher B. MD Hocker, Amanda CNS ~ CC: Yony Goldman MD DATE OF SERVICE: 05/28/2020 CHIEF COMPLAINT: Chronic pain and spasticity. HISTORY OF PRESENT ILLNESS: This is a longstanding pain clinic patient that Dr. Goldman sees for his ongoing back pain as well as his spasticity. He has been suffering from multiple wounds for quite some time, has been in and out of the hospital and currently has a wound VAC that he does report to us that he changes every 3 days. He is getting ready to start hyperbaric treatments for this wound on his buttocks as well. Today, he is reporting a pain score of 4/10. He has been trying to decrease his pain medication. We have not seen him since March. The patient states broke down and went to [facility] Emergency Room and recieved medications because he could not "tolerate the pain any longer" and did get a short supply of medications to get to his appointment today from Dr. Humphrey at the Emergency Room there. The patient does report that when he does take his medication, his pain is better controlled and he does have less spasms. He was continuing his baclofen and gabapentin on a regular basis. Today, his father is here with him for this visit who did concur that patient did go to the [facility] for these medications. At that time, he was also tested for COVID. The patient reports he has not heard the results of this test yet. He believes everybody gets tested for COVID when they go to the Emergency Room and that is why they tested him. He is not experiencing any symptoms and has not been around anybody with COVID recently. ALLERGIES: No known drug allergies. CURRENT LIST OF MEDICATIONS: Cipro, oxycodone 10/325 p.r.n., clonazepam 0.5 mg at bedtime, gabapentin 600 mg t.i.d., baclofen 20 mg q.i.d. and multivitamin. PQRS: 1. He does not have osteo or rheumatoid arthritis. 2. Height is 6 feet 4 inches, weight is 260, BMI is 31. 3. Vital signs 165/78, pulse is 124, respirations 20, oxygen is 100, pain score is 4/10. 4. He denies any dizziness. He is in a wheelchair at all times. 5. He does not take any blood thinners or blood pressure medications. 6. His opioid therapy is greater than 6 weeks; therefore, an opioid signed [address] [address] PAIN MANAGEMENT CONSULTATION Name: JUANCARLOS KEY Room #: REG CL Chelle#: [id number] Admission: 05/28/20 Attend Phys: Leslie Sandoval Discharge: Date of : 87 Report #: [id number] contract is on our chart. 7. Risk assessment is low. Functional assessment is 48/70. 8. Recreational drug use in the past. He is a former smoker and does drink some alcohol. According to the prescription monitoring system, he did fill prescriptions on 05/24/[address] Humphrey; otherwise, filling prescriptions from Dr. Yony Goldman on 03/30/2020. His morphine mEq if he was taking 4 tablets a day was 60 MMEs. He states he has been down to 2 tablets in the last few weeks. PHYSICAL EXAMINATION: GENERAL: This is an alert and orientated, pleasant 35-year-old gentleman that is without signs of overmedication. He is wearing a mask today. HEENT: Normocephalic, atraumatic. Sclerae are nonintrinsic. EXTREMITIES: He has a wound VAC on, did not examine his wounds. He complains of tenderness and spasticity in his lower extremities. IMPRESSION: 1. Chronic intractable pain related to spinal cord injury at T6 with incomplete paralysis, central pain syndrome. 2. Spasticity of the lower extremities. 3. Multiple decubitus ulcers requiring wound VAC. 4. Management of high risk medications under terms of written opioid agreement. We reviewed the fact that opiate medications are being used to provide analgesia adequate to support activities of daily living, not attempting to achieve a specific pain score on the 0-10 Visual Analog Scale. The current opiate medications are providing sufficient analgesia to allow the patient to participate in activities of daily living. The patient is not exhibiting any aberrant behavior suggestive of drug diversion. The patient is not having any adverse reactions to medications. The patient is not suffering from daytime somnolence or mental acuity changes. The patient is managing opiate-induced constipation with appropriate vkzw-ccr-wprizhh agents and dietary considerations. The patient was counseled on concern for caution with operating a motor vehicle while using opiate medications. PLAN: 1. We discussed treatment options with the patient today. I explained to him that it is not Dr. Yony Goldamn's intent to wean him off his medications completely and we did not want the patient to go through withdrawal. He was instructed to come back in a monthly time. Unfortunately, he has been greater than 2 months. The patient now taking 2 oxycodone 10/325 a day. The patient voices concern of wanting to get off this medication. I explained to the patient that may not be realistic, he may always have some pain, we can try to continue to decrease slightly. I believe that going from 4 tablets a day to 2 is quite a significant jump. The patient verbalizes understanding that he has [facility] [address] [place] [address] PAIN MANAGEMENT CONSULTATION Name: JUANCARLOS KEY Room #: REG MARIA C Corbett#: [id number] Admission: 05/28/20 Attend Phys: Leslie Sandoval Discharge: Date of : 87 Report #: [id number] been hurting, that is why he did go to the [facility] ER. We compromised and I will have Dr. Yony Goldman send 3 Percocet 10/325 tablets, #90 for this month and the next month and we will see how the patient does over the next few months with this script. The patient is agreeable. 2. We discussed his clonazepam use, discussion with the opioids and benzodiazepine. Dr. Goldman had a discussion at his last visit as well. He had been filling 0.5 mg clonazepam, though the [facility] doctor did write for 1 mg. We will continue at the lower dose. Scripts given for 0.5 mg 1 at bedtime, #30 with one additional refill. 3. We will continue his baclofen 20 mg, #120 with 2 additional refills, sent to his pharmacy as well. 4. We did collect an oral swab for a random drug screen on this patient today. There has not been one on the chart for a significant amount of time. 5. We did talk about the possibility of a telemedicine appointment for the next visit. We will determine this when it gets closer depending on how the COVID outbreak is doing. The patient is at risk due to his multiple wounds and decreased immune system. The patient is seen today in collaboration with Dr. Yony Goldman. <ELECTRONICALLY SIGNED> By: Leslie Sandoval 05/29/20 [id number] Leslie Sandoval /nt
== END ==
LOC: PAIN 07:13
PROVIDERS: ATTEND Clinical Nurse Specialist Adult Health
DX: G89.29 Other chronic pain (principal); G82.22 Paraplegia, incomplete; R25.2 Cramp and spasm; L89.899 Pressure ulcer of other site, unspecified stage; F11.20 Opioid dependence, uncomplicated; Z79.899 Other long term (current) drug therapy

== ENCOUNTER 2020-06-11 13:19 | Emergency (ER) | payer OTHER ==
[~2020-06-11] VITALS: Ht 195.6 cm; Wt 120.2 kg
[2020-06-11 14:30] LABS: ABSOLUTE NEUTROPHILS 10.2 thou/uL (1.4-8.2); BASOPHILS 1.3 % (0.0-2.0); EOSINOPHILS 1.4 % (0.0-3.0); HEMATOCRIT 26.1 % (42.0-52.0); HEMOGLOBIN 8.3 gm/dL (14.0-18.0); LYMPHOCYTES 20.4 % (24.0-44.0); MCH 23.7 pg (26.0-34.0); MCHC 31.6 g/dL (28.0-37.0); MONOCYTES 6.9 % (1.0-8.0); PLATELET COUNT 711 thou/uL (150-400); RBC 3.48 mil/uL (4.50-6.00); RDW 16.8 % (10.5-14.5); WBC 14.5 thou/uL (4.0-11.0)
[2020-06-11 14:36] LABS: ANION GAP 11 mmol/L (7-16); BUN 15 mg/dL (7-18); CALCIUM 9.3 mg/dL (8.5-10.1); CHLORIDE 100 mmol/L (98-107); CO2 27 mmol/L (21-32); CREATININE 1.1 mg/dL (0.7-1.3); GLUCOSE 110 mg/dL (74-106); POTASSIUM 3.4 mmol/L (3.5-5.1); SODIUM 138 mmol/L (136-145)
[2020-06-11 14:42] LABS: ALBUMIN 2.1 g/dL (3.4-5.0); DIRECT BILIRUBIN < 0.1 mg/dL (<0.1-0.2); SGOT 27 U/L (15-37); SGPT 44 U/L (30-65); TOTAL BILIRUBIN 0.2 mg/dL (0.2-1.0); TOTAL PROTEIN 8.6 g/dL (6.4-8.2)
[2020-06-11] MEDS ORDERED: AUGMENTIN 875-1 EACH PO (15:25)
[2020-06-11] MEDS ORDERED: IRON159 MG PO (15:25)
[2020-06-11 16:53] LABS: URINE BILIRUBIN NEGATIVE (Negative); URINE BLOOD TRACE (Negative); URINE CLARITY CLEAR; URINE COLOR YELLOW; URINE GLUCOSE-RANDOM* NEGATIVE (Negative); URINE KETONES NEGATIVE (Negative); URINE LEUKOCYTES-REFLEX NEGATIVE (Negative); URINE NITRITE-REFLEX NEGATIVE (Negative); URINE PROTEIN (DIPSTICK) NEGATIVE (Negative); URINE SPECIFIC GRAVITY <= 1.005 (1.005-1.035); URINE UROBILINOGEN 0.2 E.U./dl (0.2-1.0)
[2020-06-11] MEDS ORDERED: BENTYL 20 MG TA20 M1 PO (17:59)
[2020-06-11 18:00] VITALS: BP 113/62
== END 2020-06-11 18:00 | disposition home or self-care (01) ==
LOC: ER 13:19
PROVIDERS: Emergency Medicine
DX: K59.00 Constipation, unspecified (principal); Z79.899 Other long term (current) drug therapy

== ENCOUNTER → 2020-08-16 | Outpatient (CLI) | payer OTHER ==
[~2020-08-16] MED LIST changes: +BENTYL 20 MG TA20 M1 PO; +IRON159 MG PO
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
== END ==
LOC: TELEPC 12:06 → PAIN 12:06
PROVIDERS: ATTEND Clinical Nurse Specialist Adult Health
DX: R25.2 Cramp and spasm (principal); G89.29 Other chronic pain; L89.899 Pressure ulcer of other site, unspecified stage; F11.20 Opioid dependence, uncomplicated; Z88.8 Allergy status to other drugs, medicaments and biological substances; Z79.899 Other long term (current) drug therapy

== ENCOUNTER 2021-03-12 16:56 | Emergency (ER) | payer OTHER ==
[~2021-03-12] VITALS: Ht 193 cm; Wt 108.9 kg
[2021-03-12 18:41] LABS: ABSOLUTE NEUTROPHILS 8.8 thou/uL (1.4-8.2); BASOPHILS 1.1 % (0.0-2.0); EOSINOPHILS 2.6 % (0.0-3.0); HEMATOCRIT 24.8 % (42.0-52.0); HEMOGLOBIN 7.9 gm/dL (14.0-18.0); LYMPHOCYTES 19.7 % (24.0-44.0); MCH 24.4 pg (26.0-34.0); MCV 76.2 fL (80.0-100.0); MONOCYTES 9.9 % (1.0-8.0); PLATELET COUNT 571 thou/uL (150-400); POLYS 66.7 % (36.0-66.0); RBC 3.26 mil/uL (4.50-6.00); RDW 19.8 % (10.5-14.5); WBC 13.2 thou/uL (4.0-11.0)
[2021-03-12 18:57] LABS: CALCIUM 9.1 mg/dL (8.5-10.1); CREATININE 1.4 mg/dL (0.7-1.3); POTASSIUM 4.3 mmol/L (3.5-5.1)
[2021-03-12 19:03] LABS: TOTAL BILIRUBIN 0.2 mg/dL (0.2-1.0); TOTAL PROTEIN 8.9 g/dL (6.4-8.2)
[2021-03-12 19:29] LABS: URINE BILIRUBIN NEGATIVE (Negative); URINE BLOOD 2+ (Negative); URINE CLARITY CLEAR; URINE COLOR YELLOW; URINE GLUCOSE-RANDOM* NEGATIVE (Negative); URINE KETONES TRACE (Negative); URINE NITRITE-REFLEX NEGATIVE (Negative); URINE PROTEIN (DIPSTICK) 2+ (Negative); URINE SPECIFIC GRAVITY 1.025 (1.005-1.035)
[2021-03-12 19:35] LABS: URINE LEUKOCYTES-REFLEX 2+ (Negative)
[2021-03-12 19:46] LABS: SQUAMOUS 4-10 Moderate /LPF (0-3)
[2021-03-12 19:47] LABS: BACTERIA-REFLEX >30 Many /HPF (None Seen); CASTS None Seen /LPF (None Seen); CRYSTALS None Seen /LPF (None Seen); URINE RBC 3-10 Few /HPF (NONE SEEN); URINE WBC-REFLEX >25 Many /HPF (0-5)
[2021-03-12] MEDS ORDERED: BACTRIM DS TAB1 EACH PO (19:58)
[2021-03-12 20:18] VITALS: BP 120/64
== END 2021-03-12 20:19 | disposition home or self-care (01) ==
LOC: ER 16:56
PROVIDERS: Physician Assistant
DX: N39.0 Urinary tract infection, site not specified (principal); D64.9 Anemia, unspecified; L89.899 Pressure ulcer of other site, unspecified stage; Z46.6 Encounter for fitting and adjustment of urinary device

== ENCOUNTER 2021-05-27 19:30 | Emergency (ER) | payer OTHER ==
[~2021-05-27] VITALS: Ht 190.5 cm; Wt 104.3 kg
[2021-05-27 20:10] LABS: URINE BILIRUBIN NEGATIVE (Negative); URINE BLOOD 2+ (Negative); URINE COLOR YELLOW; URINE GLUCOSE-RANDOM* NEGATIVE (Negative); URINE KETONES NEGATIVE (Negative); URINE NITRITE-REFLEX NEGATIVE (Negative); URINE PROTEIN (DIPSTICK) 1+ (Negative); URINE SPECIFIC GRAVITY 1.025 (1.005-1.035); URINE UROBILINOGEN 0.2 E.U./dl (0.2-1.0)
[2021-05-27 20:16] LABS: URINE CLARITY SL HAZY; URINE LEUKOCYTES-REFLEX 1+ (Negative)
[2021-05-27 20:34] LABS: SQUAMOUS 0-3 Few /LPF (0-3)
[2021-05-27 20:36] LABS: MUCUS 4-6 Moderate strn/LPF (None Seen); URINE RBC 3-10 Few /HPF (NONE SEEN)
[2021-05-27 20:37] LABS: YEAST-REFLEX Present (None Seen)
[2021-05-27 23:02] LABS: ABSOLUTE NEUTROPHILS 6.5 thou/uL (1.4-8.2); EOSINOPHILS 6.6 % (0.0-3.0); HEMATOCRIT 28.9 % (42.0-52.0); MCH 24.4 pg (26.0-34.0); MCHC 31.1 g/dL (28.0-37.0); MCV 78.3 fL (80.0-100.0); MONOCYTES 6.8 % (1.0-8.0); PLATELET COUNT 495 thou/uL (150-400); POLYS 57.6 % (36.0-66.0); RBC 3.69 mil/uL (4.50-6.00); RDW 19.1 % (10.5-14.5); WBC 11.4 thou/uL (4.0-11.0)
[2021-05-27 23:08] LABS: CALCIUM 9.1 mg/dL (8.5-10.1); CREATININE 1.4 mg/dL (0.7-1.3); POTASSIUM 3.6 mmol/L (3.5-5.1)
[2021-05-28 00:30] VITALS: BP 94/58
== END 2021-05-28 00:30 | disposition home or self-care (01) ==
LOC: ER 19:30
PROVIDERS: Emergency Medicine; Nurse Practitioner
DX: N39.0 Urinary tract infection, site not specified (principal); F41.9 Anxiety disorder, unspecified; Z79.899 Other long term (current) drug therapy

== ENCOUNTER 2021-09-04 21:09 | Emergency (ER) | payer OTHER ==
[~2021-09-04] VITALS: Ht 193 cm; Wt 93.9 kg
[2021-09-04] MEDS ORDERED: CEFDINIR300 MG PO (21:20)
[2021-09-04] MEDS ORDERED: LEVOFLOXACIN750 MG PO (21:20)
[2021-09-04] MEDS ORDERED: METOPROLOL TART25 MG PO (21:21)
[2021-09-04] MEDS ORDERED: BACLOFEN20 MG PO (21:27)
[2021-09-04 21:30] VITALS: BP 135/78
== END 2021-09-04 21:36 | disposition home or self-care (01) ==
LOC: ER 21:09
DX: T83.098A Other mechanical complication of other urinary catheter, initial encounter (principal); R00.2 Palpitations; F41.9 Anxiety disorder, unspecified; Y84.8 Other medical procedures as the cause of abnormal reaction of the patient, or of later complication, without mention of misadventure at the time of the procedure; Y92.89 Other specified places as the place of occurrence of the external cause

== ENCOUNTER 2021-11-06 18:58 | Emergency (ER) | payer OTHER ==
[~2021-11-06] VITALS: Ht 195.6 cm; Wt 104.3 kg
[~2021-11-06 18:58] MED LIST changes: +CEFDINIR300 MG PO; +LEVOFLOXACIN750 MG PO; +METOPROLOL TART25 MG PO
[2021-11-06 22:36] LABS: ABSOLUTE NEUTROPHILS 8.7 thou/uL (1.4-8.2); BASOPHILS 1.6 % (0.0-2.0); EOSINOPHILS 5.9 % (0.0-3.0); HEMATOCRIT 26.8 % (42.0-52.0); HEMOGLOBIN 8.2 gm/dL (14.0-18.0); LYMPHOCYTES 23.6 % (24.0-44.0); MCH 22.7 pg (26.0-34.0); MCHC 30.6 g/dL (28.0-37.0); MCV 74.3 fL (80.0-100.0); MONOCYTES 4.7 % (1.0-8.0); PLATELET COUNT 731 thou/uL (150-400); POLYS 64.2 % (36.0-66.0); RBC 3.61 mil/uL (4.50-6.00); RDW 17.9 % (10.5-14.5); WBC 13.6 thou/uL (4.0-11.0)
[2021-11-06 22:48] LABS: URINE BILIRUBIN NEGATIVE (Negative); URINE BLOOD 1+ (Negative); URINE CLARITY CLOUDY; URINE COLOR YELLOW; URINE GLUCOSE-RANDOM* NEGATIVE (Negative); URINE KETONES NEGATIVE (Negative); URINE PROTEIN (DIPSTICK) 1+ (Negative); URINE UROBILINOGEN 0.2 E.U./dl (0.2-1.0)
[2021-11-06 22:54] LABS: URINE LEUKOCYTES-REFLEX 3+ (Negative); URINE NITRITE-REFLEX POSITIVE (Negative)
[2021-11-06 23:03] LABS: ANION GAP 13 mmol/L (7-16); BUN 21 mg/dL (7-18); CALCIUM 8.6 mg/dL (8.5-10.1); CHLORIDE 101 mmol/L (98-107); CO2 21 mmol/L (21-32); CREATININE 1.1 mg/dL (0.7-1.3); GLUCOSE 89 mg/dL (74-106); POTASSIUM 3.9 mmol/L (3.5-5.1); SODIUM 135 mmol/L (136-145)
[2021-11-06 23:07] LABS: ALBUMIN 2.2 g/dL (3.4-5.0); SGOT 19 U/L (15-37); SGPT 30 U/L (30-65); TOTAL BILIRUBIN < 0.1 mg/dL (0.2-1.0); TOTAL PROTEIN 8.5 g/dL (6.4-8.2)
[2021-11-06 23:16] LABS: CASTS None Seen /LPF (None Seen); CRYSTALS None Seen /LPF (None Seen); MUCUS 4-6 Moderate strn/LPF (None Seen); SQUAMOUS 4-10 Moderate /LPF (0-3); URINE RBC 3-10 Few /HPF (NONE SEEN); WBC CLUMPS Moderate (None Seen)
[2021-11-07] MEDS ORDERED: CEFDINIR300 MG PO (00:09)
[2021-11-07 00:43] VITALS: BP 132/82
== END 2021-11-07 00:30 | disposition home or self-care (01) ==
LOC: ER 18:58
PROVIDERS: Emergency Medicine
DX: T83.038A Leakage of other urinary catheter, initial encounter (principal); N39.0 Urinary tract infection, site not specified; F41.9 Anxiety disorder, unspecified; Z79.899 Other long term (current) drug therapy